=== PATIENT | female | born 1940 | race Caucasian/White ===

== ENCOUNTER 2017-02-17 11:03 | Emergency (ER) | payer OTHER, MEDICARE ==
[~2017-02-17 11:03] MED LIST: ALBUTEROL SULFA0.5 % IN; BACTRIM DS1 TAB PO; BENAZEPRIL HCL/1 TA3 PO; CARAFATE E1 GM/10 ML PO; CARAFATE EQUIVAL1 GM PO; COLACE100 MG PO; FERROUS SULFAT325 M1 PO; FIBER SELECT GUMMIES PO; HYCET1 ML PO; LOMOTIL2.5 MG PO; LOPRESSOR25 MG PO; PEPCID40 MG PO; PERCOCET1 TA1 PO; PREDNISONE20 MG PO; PRILOSEC20 MG PO; PROAIR HFA IN; SYNTHROID100 MCG PO; VITAMIN B-122000 MCG PO; [UNRECOGNIZED DRUG - OTHER] PO; [UNRECOGNIZED DRUG - OTHER] PO
--- NOTE | 2017-02-17 13:32 | ED CLINICAL REPORT ---
Clinical Report - Physicians/Mid Levels [facility] [address] [place] [address] 02/17/2017 11:03 Patient: REILLY PRESTON Time Seen: 11:05. Arrived- By ambulance. Historian- patient and EMS personnel. HISTORY OF PRESENT ILLNESS Chief Complaint: VOMITING. This started last night and is still present. No recent travel. She has had nausea, vomiting and abdominal pain. No black stools, bloody stools, flank pain, history of possible bad food exposure or known contact with a sick individual. She has had constipation (No colostomy output this morning.). Has not recently been camping or on antibiotics. The illness is described as moderate. (PT describes upper abdominal pain. She states that she has had bowel obstructions in the past, and this feels similar. Vomitus has been brownish-green. Pt had a distal large bowel resection and [id number] muscle graft in July of [address] [facility]. Pt has a caregiver.). Similar symptoms previously: Recent medical care: The patient was seen recently by a health care provider. REVIEW OF SYSTEMS No fever, muscle aches, difficulty with urination, dark urine or headache. No dizziness, sore throat, cough, chest pain or difficulty breathing. No excessive urination, skin rash, jaundice, back pain or fainting episodes. No blurred vision. All systems otherwise negative, except as recorded above. PAST HISTORY Home O2 at 2 L RTC. Problems: COPD - Chronic Obstructive Pulmonary Disease. GI Bleeding. Ureterolithiasis. Bowel Obstruction. Abcess left back near kidney. Leukemia. Rectal CA. Thyroid Disease. Additional Surgeries: Adenoidectomy. Appendectomy. Cholecystectomy. Hysterectomy. Right ankle surgery after fx. Tonsillectomy. Ulcer surgery. Medications: Albutreral inhaler (PRN). Benazepril-Hydrochlorothiazide Oral (Tablet 10-12.5 mg) 1 tablet, Day. L-thyroxine 125mcg one tab day. Oxygen 2l/nc. Allergies: No Known Drug Allergy. SOCIAL HISTORY Former smoker. ADDITIONAL NOTES The nursing notes have been reviewed. PHYSICAL EXAM Vital Signs: 02/17/2017 11:08 BP: 144/103. HR: 71. RR: 18. O2 saturation: 96%. Have been reviewed. Appearance: Alert. Oriented X3. No acute distress. (Pt appears mildly uncomfortable.). Eyes: Pupils equal, round and reactive to light. Eyes normal inspection. ENT: Nose normal. Neck: Normal inspection. CVS: Normal heart rate and rhythm. Heart sounds normal. Pulses normal. Respiratory: No respiratory distress. Breath sounds normal. Abdomen: Soft. Moderate tenderness in the upper abdomen. No guarding or rebound tenderness. (Pt has a L-sided colostomy in place with brownish stool residue only. Colostomy site is well-appearing.). Back: Normal inspection. No CVA tenderness. Skin: Skin warm and dry. Normal skin color. No rash. Normal skin turgor. Extremities: Extremities exhibit normal ROM. No lower extremity edema. Neuro: Oriented X 3. No motor deficit. No sensory deficit. LABS, X-RAYS, AND EKG Laboratory Tests: CBC w Diff: (CALEB: 02/17/2017 11:30) ( [facility] [place] 02/17/2017 11:50) Final results Test Result Flag Units (Reference) WHITE BLOOD COUNT 15.9 H K/uL (4.5-11.5) RED BLOOD COUNT 4.58 M/uL (4.00-5.20) HEMOGLOBIN 11.7 L gm/dL (12.0-16.0) HEMATOCRIT 36.8 % (36.0-46.0) MEAN CELL VOLUME 80 fL (80-100) MEAN CORPUSCULAR HGB 26 pg (26-34) MEAN CORPUSCULAR HGB CONC 32 g/dL (31-37) RED CELL DISTRIBUTION WIDTH 19.3 H % (11.6-14.8) PLATELET COUNT 495 H K/uL (150-400) NEUTROPHIL % 85.2 H % (50-75) LYMPH % 8.2 L % (25-40) MONO % 5.4 % (3-14) EOSINOPHIL % 1.1 % (0-4) BASOPHIL % 0.1 % (0-2) CMP: (CALEB: 02/17/2017 11:30) ( [facility] [place] 02/17/2017 12:05) Final results Test Result Flag Units (Reference) GLUCOSE 152 H mg/dL (70-110) BUN 25 H mg/dL (7-18) CREATININE 1.8 H mg/dL (0.6-1.3) Estimated GFR 29.15 mL/min Estimated GFR- 35.33 mL/min Note: Persistent reduction over 3 months in eGFR<60 mL/min/1.73 m2 defines CKD. Patients with eGFR values>=60 mL/min/1.73 m2 may also have CKD if evidence ofpersistent proteinuria. Additional information may be foundat www.kidney.org. SODIUM 141 mmol/L (136-145) POTASSIUM 4.1 mmol/L (3.5-5.1) CHLORIDE 103 mmol/L (98-107) CARBON DIOXIDE 30 mmol/L (21-32) CALCIUM 10.3 H mg/dL (8.5-10.1) TOTAL PROTEIN 7.9 g/dL (6.4-8.2) ALBUMIN 2.8 L g/dL (3.3-5.0) BILIRUBIN, TOTAL 0.5 mg/dL (0.0-1.0) ALKALINE PHOSPHATASE 117 H U/L (46-116) AST (SGOT) 45 H U/L (15-37) ALT (SGPT) 26 U/L (12-78) . Pulse Oximetry: 02/17/2017 11:08 O2 saturation: 96%. (FIO2 - room air). Interpretation: normal. PROGRESS AND PROCEDURES Course of Care: Pt was given IV fluids and Zofran, and worked up for her vomiting. Her labs showed a moderate leukocytosis, but were otherwise unremarkable. I ordered a CT scan to evaluate for an obstruction; however, as pt was being moved to the CT table, she had a very large output of stool into her ostomy bag. Pt reported feeling completely better following this, and after a period of observation in the ED, was still feeling back to normal. I did cancel the CT scan, and I felt the pt was stable for d/c home. Patient counseled in person regarding the patient's stable condition, test results, diagnosis and need for follow-up. Concerns were addressed. Old medical records reviewed. Disposition: Discharged. Condition: stable and improved. CLINICAL IMPRESSION Vomiting with nausea. Constipation (resolved). INSTRUCTIONS Drink plenty of fluids. Warnings: GENERAL WARNINGS: Return or contact your physician immediately if your condition worsens or changes unexpectedly, if not improving as expected, or if other problems arise. Your Current Medications: CONTINUE TAKING THE FOLLOWING MEDICATIONS: Albutreral inhaler* : PRN. Benazepril-Hydrochlorothiazide Oral : Tablet 10-12.5 mg, 1 tablet Day. L-thyroxine 125mcg one tab day*. Oxygen 2l/nc*. Follow-up: Follow up with your doctor as needed. Understanding of the discharge instructions verbalized by patient. (Electronically signed by Maxine Sylvester MD 02/21/2017 3:57)
--- NOTE | 2017-02-17 13:32 | ED NURSING NOTES ---
Clinical Report - Nurses [facility] [address] [place] [address] 02/17/2017 11:03 Patient: REILLY PRESTON TRIAGE Triage time 11:Feb 17 2017. Acuity: LEVEL 2. Chief Complaint: ABDOMINAL PAIN and VOMITING. Alert. No acute distress. --11:20 Neelam Coopre R.N. 11:08 02/17/17. BP: 144/103. HR: 71. RR: 18. O2 saturation: 96%. Pain level now 0/10. --11:20 Neelam Cooper R.N. Weight: 73 kg stated. Height/Length: 65 inches Per Patient. BMI: 26.8. --11:08 Neelam Cooper R.N. Medications Albutreral inhaler (PRN). Benazepril-Hydrochlorothiazide Oral (Tablet 10-12.5 mg) 1 tablet, Day. L-thyroxine 125mcg one tab day. Oxygen 2l/nc. --11:14 Neelam Cooper R.N. Medication/allergy information source: the patient. --11:20 Neelam Cooper R.N. Allergies No Known Drug Allergy. --11:14 Neelam Cooper R.N. History Arrived by EMS, and ([place]). Historian: patient. Primary physician (Dr. Treadwell). ( Hx of Rectal Cancer - Ostomy placed 13 of August and Muscle Graft from the Right Thigh that was used for Rectum. All this was done at . Surgeons are there. Caregiver called 911 because pt has decreased output from Ostomy and urine output. Pt is vomiting. Decreased intake also. Pt currently has two abdominal hernia's also, old and were fixed by Dr. Chew.). This started yesterday. She has had nausea, vomiting and abdominal pain. Treatment PROFESSIONAL SERVICES CONSULTANT: None. PAST MEDICAL HX: Immunizations: has received tetanus within 5 years; seasonal influenza. SOCIAL HX: Current every day light tobacco smoker (cigarette)- less than 1/2 a pack per day. Occasional alcohol use; consumes liquor. No drug use. No recent travel. No infectious disease exposure. FALL RISK ASSESSMENT: Fall risk assessment completed. No fall risk identified. NUTRITIONAL RISK ASSESSMENT: The nutritional risk assessment revealed no deficiencies. FUNCTIONAL ASSESSMENT: Functional assessment: no impairments noted. LEARNING NEEDS ASSESSMENT: The learning needs assessment revealed no barriers. SKIN INTEGRITY ASSESSMENT: Skin integrity risk assessment completed. No skin integrity risk identified. --11:20 Neelam Cooper R.N. PROBLEMS: COPD - Chronic Obstructive Pulmonary Disease. GI Bleeding. Ureterolithiasis. Bowel Obstruction. Abcess left back near kidney. Leukemia. Rectal CA. Thyroid Disease. --11:17 Neelam Cooper R.N. ADDITIONAL SURGERIES: Adenoidectomy. Appendectomy. Cholecystectomy. Hysterectomy. Muscle Graft. Ostomy. Right ankle surgery after fx. Tonsillectomy. Ulcer surgery. --11:17 Neelam Cooper R.N. Interventions ID band on patient. To room. --11:20 Neelam Copoer R.N. PHYSICAL ASSESSMENT To room via stretcher. GENERAL / NEURO / PSYCH: Oriented X 4. Appears in no acute distress. RESPIRATORY: ( cough, not new pt states, "smokers cough"). GI / : The patient has had nausea and nausea. Abdominal distention. Abdominal tenderness. ( Ostomy on 07/2016). --11:22 Neelam Cooper R.N. NURSING PROGRESS NOTES Oxygen administered. Monitoring of patient in place. Patient gowned. Reassurance given. ( Provider was at bedside on pt's arrival.). --11:21 Neelam Cooper R.N. 11:34 02/17/2017 Site #1 started via IV in the right antecubital space with an 18g angiocath, with aseptic technique and good blood return; one attempt. Blood drawn: rainbow set. Labeled in the presence of the patient and sent to the lab. Saline lock flushed with 10 mL saline (lactate also, no touriquett). --11:34 Neelam Cooper R.N. ( Bedside Commode set up.). --11:34 Neelam Cooper R.N. 11:47 02/17/2017 Zofran (Ondansetron HCl) IVP 4 mg given over 2 minute(s) via site #1. Allergies verified and confirmed 5 rights. IV patency established. IV site checked: no pain, redness, or swelling. IV flushed thoroughly pre- and post-medication administration. IVP given by RN. --11:47 Neelam Cooper R.N. 11:49 02/17/2017 Started bag #1 1000 mL IV Fluids IV NS (Saline); at 1000 mL/hr over 1 hour(s) via site #1. Completed per protocol. --11:49 Neelam Cooper R.N. Call light placed in reach. Side rails up x 2. Bed placed in lowest position. Brakes of bed on. ( Blankets.). --11:50 Neelam Cooper R.N. The patient is resting quietly and has had no adverse reaction. --12:35 Neelam Cooper R.N. 12:35 02/17/17. BP: 123/53. HR: 65. --12:35 Neelam Cooper R.N. Patient transported to [place] by [employer]. (12:58 Feb 17 2017). --12:58 Neelam Cooper R.N. ( Pt had a very large amount of stool removed from her Ostomy.). --12:59 Neelam Cooper R.N. 12:20 02/17/2017 IV Fluids IV NS Discontinued: bag #1 infused. Total amount infused: 1000 mL. IV patency established. IV site checked: no pain, redness, or swelling. IV flushed thoroughly. --14:16 Neelam Cooper R.N. 14:16 02/17/17. BP: 123/53. HR: 71. RR: 20. O2 saturation: 100%. Pain level now 0/10. --14:18 Neelam Cooper R.N. ( Assisted pt with dressing herself, toilet. IV removed. on the way.). --14:18 Neelam Cooper R.N. 14:18 02/17/2017 Site #1 removed upon discharge. Bandage applied. --14:18 Neelam Cooper R.N. ( Family updated on pt's visit in the ER. Family agreeable for pt to go home. Pt will follow up with PCP.). --15:17 Neelam Cooper R.N. DISPOSITION / DISCHARGE Departure time: 14:45 Feb 17 2017. ( VS documented under progress for discharge vitals.). No learning barriers present. Discharge instructions provided and reviewed with the patient and spouse. Patient and spouse verbalized understanding. Written instructions provided in Slovenian. The patient was discharged by the physician. She was discharged home and accompanied by spouse. She left the Emergency Department ambulatory and via private vehicle. Spouse driving. --15:18 Neelam Cooper R.N. Locked/Released at 02/17/2017 15:19 by Neelam Cooper R.N.
--- NOTE | 2017-02-17 13:32 | ED NURSING NOTES ---
Clinical Report - Nurses [facility] [address] [place] [address] 02/17/2017 11:03 Patient: REILLY PRESTON TRIAGE Triage time 11:Feb 17 2017. Acuity: LEVEL 2. Chief Complaint: ABDOMINAL PAIN and VOMITING. Alert. No acute distress. --11:20 Neelam Cooper R.N. 11:08 02/17/17. BP: 144/103. HR: 71. RR: 18. O2 saturation: 96%. Pain level now 0/10. --11:20 Neelam Cooper R.N. Weight: 73 kg stated. Height/Length: 65 inches Per Patient. BMI: 26.8. --11:08 Neelam Cooper R.N. Medications Albutreral inhaler (PRN). Benazepril-Hydrochlorothiazide Oral (Tablet 10-12.5 mg) 1 tablet, Day. L-thyroxine 125mcg one tab day. Oxygen 2l/nc. --11:14 Neelam Cooper R.N. Medication/allergy information source: the patient. --11:20 Neelam Cooper R.N. Allergies No Known Drug Allergy. --11:14 Neelam Cooper R.N. History Arrived by EMS, and ([place]). Historian: patient. Primary physician (Dr. Treadwell). ( Hx of Rectal Cancer - Ostomy placed 13 of August and Muscle Graft from the Right Thigh that was used for Rectum. All this was done at . Surgeons are there. Caregiver called 911 because pt has decreased output from Ostomy and urine output. Pt is vomiting. Decreased intake also. Pt currently has two abdominal hernia's also, old and were fixed by Dr. Chew.). This started yesterday. She has had nausea, vomiting and abdominal pain. Treatment ASSISTANT DISTRICT ATTORNEY: None. PAST MEDICAL HX: Immunizations: has received tetanus within 5 years; seasonal influenza. SOCIAL HX: Current every day light tobacco smoker (cigarette)- less than 1/2 a pack per day. Occasional alcohol use; consumes liquor. No drug use. No recent travel. No infectious disease exposure. FALL RISK ASSESSMENT: Fall risk assessment completed. No fall risk identified. NUTRITIONAL RISK ASSESSMENT: The nutritional risk assessment revealed no deficiencies. FUNCTIONAL ASSESSMENT: Functional assessment: no impairments noted. LEARNING NEEDS ASSESSMENT: The learning needs assessment revealed no barriers. SKIN INTEGRITY ASSESSMENT: Skin integrity risk assessment completed. No skin integrity risk identified. --11:20 Neelam Cooper R.N. PROBLEMS: COPD - Chronic Obstructive Pulmonary Disease. GI Bleeding. Ureterolithiasis. Bowel Obstruction. Abcess left back near kidney. Leukemia. Rectal CA. Thyroid Disease. --11:17 Neelam Cooper R.N. ADDITIONAL SURGERIES: Adenoidectomy. Appendectomy. Cholecystectomy. Hysterectomy. Muscle Graft. Ostomy. Right ankle surgery after fx. Tonsillectomy. Ulcer surgery. --11:17 Neelam Cooper R.N. Interventions ID band on patient. To room. --11:20 Neelam Cooper R.N. PHYSICAL ASSESSMENT To room via stretcher. GENERAL / NEURO / PSYCH: Oriented X 4. Appears in no acute distress. RESPIRATORY: ( cough, not new pt states, "smokers cough"). GI / : The patient has had nausea and nausea. Abdominal distention. Abdominal tenderness. ( Ostomy on 07/2016). --11:22 Neelam Cooper R.N. NURSING PROGRESS NOTES Oxygen administered. Monitoring of patient in place. Patient gowned. Reassurance given. ( Provider was at bedside on pt's arrival.). --11:21 Neelam Cooper R.N. 11:34 02/17/2017 Site #1 started via IV in the right antecubital space with an 18g angiocath, with aseptic technique and good blood return; one attempt. Blood drawn: rainbow set. Labeled in the presence of the patient and sent to the lab. Saline lock flushed with 10 mL saline (lactate also, no touriquett). --11:34 Neelam Cooper R.N. ( Bedside Commode set up.). --11:34 Neelam Cooper R.N. 11:47 02/17/2017 Zofran (Ondansetron HCl) IVP 4 mg given over 2 minute(s) via site #1. Allergies verified and confirmed 5 rights. IV patency established. IV site checked: no pain, redness, or swelling. IV flushed thoroughly pre- and post-medication administration. IVP given by RN. --11:47 Neelam Cooper R.N. 11:49 02/17/2017 Started bag #1 1000 mL IV Fluids IV NS (Saline); at 1000 mL/hr over 1 hour(s) via site #1. Completed per protocol. --11:49 Neelam Cooper R.N. Call light placed in reach. Side rails up x 2. Bed placed in lowest position. Brakes of bed on. ( Blankets.). --11:50 Neelam oCoper R.N. The patient is resting quietly and has had no adverse reaction. --12:35 Neelam Cooper R.N. 12:35 02/17/17. BP: 123/53. HR: 65. --12:35 Neelam Cooper R.N. Patient transported to [place] by [employer]. (12:58 Feb 17 2017). --12:58 Neelam Cooper R.N. ( Pt had a very large amount of stool removed from her Ostomy.). --12:59 Neelam Cooper R.N. 12:20 02/17/2017 IV Fluids IV NS Discontinued: bag #1 infused. Total amount infused: 1000 mL. IV patency established. IV site checked: no pain, redness, or swelling. IV flushed thoroughly. --14:16 Neelam Cooper R.N. 14:16 02/17/17. BP: 123/53. HR: 71. RR: 20. O2 saturation: 100%. Pain level now 0/10. --14:18 Neelam Cooper R.N. ( Assisted pt with dressing herself, toilet. IV removed. on the way.). --14:18 Neelam Cooper R.N. 14:18 02/17/2017 Site #1 removed upon discharge. Bandage applied. --14:18 Neelam Cooper R.N. ( Family updated on pt's visit in the ER. Family agreeable for pt to go home. Pt will follow up with PCP.). --15:17 Neelam Cooper R.N. DISPOSITION / DISCHARGE Departure time: 14:45 Feb 17 2017. ( VS documented under progress for discharge vitals.). No learning barriers present. Discharge instructions provided and reviewed with the patient and spouse. Patient and spouse verbalized understanding. Written instructions provided in Upper Sorbian. The patient was discharged by the physician. She was discharged home and accompanied by spouse. She left the Emergency Department ambulatory and via private vehicle. Spouse driving. --15:18 Neelam Cooper R.N. Locked/Released at 02/17/2017 15:19 by Neelam Cooper R.N.
--- NOTE | 2017-02-17 13:32 | ED CLINICAL REPORT ---
Clinical Report - Physicians/Mid Levels [facility] [address] [place] [address] 02/17/2017 11:03 Patient: REILLY PRESTON Time Seen: 11:05. Arrived- By ambulance. Historian- patient and EMS personnel. HISTORY OF PRESENT ILLNESS Chief Complaint: VOMITING. This started last night and is still present. No recent travel. She has had nausea, vomiting and abdominal pain. No black stools, bloody stools, flank pain, history of possible bad food exposure or known contact with a sick individual. She has had constipation (No colostomy output this morning.). Has not recently been camping or on antibiotics. The illness is described as moderate. (PT describes upper abdominal pain. She states that she has had bowel obstructions in the past, and this feels similar. Vomitus has been brownish-green. Pt had a distal large bowel resection and [id number] muscle graft in July of 2016 at [facility]. Pt has a caregiver.). Similar symptoms previously: Recent medical care: The patient was seen recently by a health care provider. REVIEW OF SYSTEMS No fever, muscle aches, difficulty with urination, dark urine or headache. No dizziness, sore throat, cough, chest pain or difficulty breathing. No excessive urination, skin rash, jaundice, back pain or fainting episodes. No blurred vision. All systems otherwise negative, except as recorded above. PAST HISTORY Home O2 at 2 L RTC. Problems: COPD - Chronic Obstructive Pulmonary Disease. GI Bleeding. Ureterolithiasis. Bowel Obstruction. Abcess left back near kidney. Leukemia. Rectal CA. Thyroid Disease. Additional Surgeries: Adenoidectomy. Appendectomy. Cholecystectomy. Hysterectomy. Right ankle surgery after fx. Tonsillectomy. Ulcer surgery. Medications: Albutreral inhaler (PRN). Benazepril-Hydrochlorothiazide Oral (Tablet 10-12.5 mg) 1 tablet, Day. L-thyroxine 125mcg one tab day. Oxygen 2l/nc. Allergies: No Known Drug Allergy. SOCIAL HISTORY Former smoker. ADDITIONAL NOTES The nursing notes have been reviewed. PHYSICAL EXAM Vital Signs: 02/17/2017 11:08 BP: 144/103. HR: 71. RR: 18. O2 saturation: 96%. Have been reviewed. Appearance: Alert. Oriented X3. No acute distress. (Pt appears mildly uncomfortable.). Eyes: Pupils equal, round and reactive to light. Eyes normal inspection. ENT: Nose normal. Neck: Normal inspection. CVS: Normal heart rate and rhythm. Heart sounds normal. Pulses normal. Respiratory: No respiratory distress. Breath sounds normal. Abdomen: Soft. Moderate tenderness in the upper abdomen. No guarding or rebound tenderness. (Pt has a L-sided colostomy in place with brownish stool residue only. Colostomy site is well-appearing.). Back: Normal inspection. No CVA tenderness. Skin: Skin warm and dry. Normal skin color. No rash. Normal skin turgor. Extremities: Extremities exhibit normal ROM. No lower extremity edema. Neuro: Oriented X 3. No motor deficit. No sensory deficit. LABS, X-RAYS, AND EKG Laboratory Tests: CBC w Diff: (CALEB: 02/17/2017 11:30) ( [facility] [place] 02/17/[place] 11:50) Final results Test Result Flag Units (Reference) WHITE BLOOD COUNT 15.9 H K/uL (4.5-11.5) RED BLOOD COUNT 4.58 M/uL (4.00-5.20) HEMOGLOBIN 11.7 L gm/dL (12.0-16.0) HEMATOCRIT 36.8 % (36.0-46.0) MEAN CELL VOLUME 80 fL (80-100) MEAN CORPUSCULAR HGB 26 pg (26-34) MEAN CORPUSCULAR HGB CONC 32 g/dL (31-37) RED CELL DISTRIBUTION WIDTH 19.3 H % (11.6-14.8) PLATELET COUNT 495 H K/uL (150-400) NEUTROPHIL % 85.2 H % (50-75) LYMPH % 8.2 L % (25-40) MONO % 5.4 % (3-14) EOSINOPHIL % 1.1 % (0-4) BASOPHIL % 0.1 % (0-2) CMP: (CALEB: 02/17/2017 11:30) ( [facility] [place] 02/17/[place] 12:05) Final results Test Result Flag Units (Reference) GLUCOSE 152 H mg/dL (70-110) BUN 25 H mg/dL (7-18) CREATININE 1.8 H mg/dL (0.6-1.3) Estimated GFR 29.15 mL/min Estimated GFR- 35.33 mL/min Note: Persistent reduction over 3 months in eGFR<60 mL/min/1.73 m2 defines CKD. Patients with eGFR values>=60 mL/min/1.73 m2 may also have CKD if evidence ofpersistent proteinuria. Additional information may be foundat www.kidney.org. SODIUM 141 mmol/L (136-145) POTASSIUM 4.1 mmol/L (3.5-5.1) CHLORIDE 103 mmol/L (98-107) CARBON DIOXIDE 30 mmol/L (21-32) CALCIUM 10.3 H mg/dL (8.5-10.1) TOTAL PROTEIN 7.9 g/dL (6.4-8.2) ALBUMIN 2.8 L g/dL (3.3-5.0) BILIRUBIN, TOTAL 0.5 mg/dL (0.0-1.0) ALKALINE PHOSPHATASE 117 H U/L (46-116) AST (SGOT) 45 H U/L (15-37) ALT (SGPT) 26 U/L (12-78) . Pulse Oximetry: 02/17/2017 11:08 O2 saturation: 96%. (FIO2 - room air). Interpretation: normal. PROGRESS AND PROCEDURES Course of Care: Pt was given IV fluids and Zofran, and worked up for her vomiting. Her labs showed a moderate leukocytosis, but were otherwise unremarkable. I ordered a CT scan to evaluate for an obstruction; however, as pt was being moved to the CT table, she had a very large output of stool into her ostomy bag. Pt reported feeling completely better following this, and after a period of observation in the ED, was still feeling back to normal. I did cancel the CT scan, and I felt the pt was stable for d/c home. Patient counseled in person regarding the patient's stable condition, test results, diagnosis and need for follow-up. Concerns were addressed. Old medical records reviewed. Disposition: Discharged. Condition: stable and improved. CLINICAL IMPRESSION Vomiting with nausea. Constipation (resolved). INSTRUCTIONS Drink plenty of fluids. Warnings: GENERAL WARNINGS: Return or contact your physician immediately if your condition worsens or changes unexpectedly, if not improving as expected, or if other problems arise. Your Current Medications: CONTINUE TAKING THE FOLLOWING MEDICATIONS: Albutreral inhaler* : PRN. Benazepril-Hydrochlorothiazide Oral : Tablet 10-12.5 mg, 1 tablet Day. L-thyroxine 125mcg one tab day*. Oxygen 2l/nc*. Follow-up: Follow up with your doctor as needed. Understanding of the discharge instructions verbalized by patient. (Electronically signed by Maxine Sylvester MD 02/21/2017 3:57)
--- NOTE | 2017-02-17 13:32 | ED ORDER SUMMARY ---
..... Patient: REILLY PRESTON OrderSheet [facility] VisitID: [id number] [address] [place] [address] 76y, F Registration Date/Time: 02/17/2017 ORDER SHEET Weight: 73.0 kg (stated) Allergies: No Known Drug Allergy GENERAL ORDERS: CT Abd/Pel w Cont (No) (N/A) Urgent (11:20 02/17/2017 Prem CROCKER) (Ack 11:27 LNations ER Tech1) (Cancelled: Other12:12 Prem CROCKER) CBC w Diff Urgent (11:02/17/2017 Prme CROCKER) (Ack 11:27 LNations ER Tech1) (11:47 SBalde R.N.) CMP Urgent (11:21 02/17/2017 Prem CROCKER) (Ack 11:27 LNations ER Tech1) (11:47 SBalde R.N.) CT Abd/Pel wo Cont Urgent (12:12 02/17/2017 Prem CROCKER) (Ack 12:14 LNations ER Tech1) (Cancelled: Change in patient [id number]:31 Prem CROCKER) MEDICATION ORDERS: IV FLUIDS: IV NS : initial bolus 1000 mL (1000 mL/hr), then none - (NOW) (11:20 02/17/2017 Prem CROCKER) (11:49 SBalde R.N.) Zofran IV 8 mg (NOW) (11:02/17/2017 Prem CROCKER) (11:47 CAMILAalde R.N.) ORDER SHEET NOTES: [Electronically signed by Neelam Cooper R.N. (15:19 02/17/2017)] [Electronically signed by Maxine Sylvester MD (03:57 02/21/2017)] [Electronically locked/signed by Neelam Cooper R.N. (15:19 02/17/2017)]
--- NOTE | 2017-02-17 13:32 | ED ORDER SUMMARY ---
..... Patient: REILLY PRESTON OrderSheet [facility] VisitID: [id number] [address] [place] [address] 76y, F Registration Date/Time: 02/17/2017 ORDER SHEET Weight: 73.0 kg (stated) Allergies: No Known Drug Allergy GENERAL ORDERS: CT Abd/Pel w Cont (No) (N/A) Urgent (11:20 02/17/2017 Prem CROCKER) (Ack 11:27 LNations ER Tech1) (Cancelled: Other12:12 Prem CROCKER) CBC w Diff Urgent (11:02/17/2017 Prem CROCKER) (Ack 11:27 LNations ER Tech1) (11:47 SBalde R.N.) CMP Urgent (11:21 02/17/2017 Prem CROCKER) (Ack 11:27 LNations ER Tech1) (11:47 SBalde R.N.) CT Abd/Pel wo Cont Urgent (12:12 02/17/2017 Prem CROCKER) (Ack 12:14 LNations ER Tech1) (Cancelled: Change in patient [id number]:31 Prem CROCKER) MEDICATION ORDERS: IV FLUIDS: IV NS : initial bolus 1000 mL (1000 mL/hr), then none - (NOW) (11:20 02/17/2017 Prem CROCKER) (11:49 SBalde R.N.) Zofran IV 8 mg (NOW) (11:02/17/2017 Prem CROCKER) (11:47 CAMILAalde R.N.) ORDER SHEET NOTES: [Electronically signed by Neelam Cooper R.N. (15:19 02/17/2017)] [Electronically signed by Maxine Sylvester MD (03:57 02/21/2017)] [Electronically locked/signed by Neelam Cooper R.N. (15:19 02/17/2017)]
--- NOTE | 2017-02-21 03:57 | ED MAR SUMMARY ---
..... Medication Administration Record [facility] [address] [place] [address] Patient: REILLY PRESTON Visit ID: [id number] 76y, F Weight: 73.0 kg Height/Length: 65 in BMI: 26.8 ALLERGIES: No Known Drug Allergy Given 11:47 02/17/2017 Neelam Cooper R.N. Medication Administered: ZOFRAN [IVP] (ONDANSETRON HCL), Dose: 4 mg IVP over 2 minute(s), Site: #1 right AC. Medication Ordered: Zofran IV 8 mg (NOW). Start 11:49 02/17/2017 Neelam Cooper R.N., Stop 12:20 02/17/2017 Neelam Cooper R.N. Medication Administered: IV NS (SALINE), Dose: IV Fluids over 1 hour(s), Rate: 1000 mL/hr, Dispensed: 1000 mL bag, Site: #1 right AC. Medication Ordered: IV NS : initial bolus 1000 mL (1000 mL/hr), then none - (NOW).
--- NOTE | 2017-02-21 03:57 | ED MAR SUMMARY ---
..... Medication Administration Record [facility] [address] [place] [address] Patient: REILLY PRESTON Visit ID: [id number] 76y, F Weight: 73.0 kg Height/Length: 65 in BMI: 26.8 ALLERGIES: No Known Drug Allergy Given 11:47 02/17/2017 Neelam Cooper R.N. Medication Administered: ZOFRAN [IVP] (ONDANSETRON HCL), Dose: 4 mg IVP over 2 minute(s), Site: #1 right AC. Medication Ordered: Zofran IV 8 mg (NOW). Start 11:49 02/17/2017 Neelam Cooper R.N., Stop 12:20 02/17/2017 Neelam Cooper R.N. Medication Administered: IV NS (SALINE), Dose: IV Fluids over 1 hour(s), Rate: 1000 mL/hr, Dispensed: 1000 mL bag, Site: #1 right AC. Medication Ordered: IV NS : initial bolus 1000 mL (1000 mL/hr), then none - (NOW).
--- NOTE | 2017-02-21 03:57 | ED DISCHARGE INSTRUCTIONS ---
Patient: REILLY PRESTON General Instructions [facility] VisitID: [id number] [address] [place] [address] 76y, F Registration Date/Time: 02/17/2017 Vomiting with nausea. Constipation (resolved). INSTRUCTIONS Drink plenty of fluids. Warnings: GENERAL WARNINGS: Return or contact your physician immediately if your condition worsens or changes unexpectedly, if not improving as expected, or if other problems arise. Your Current Medications: CONTINUE TAKING THE FOLLOWING MEDICATIONS: Albutreral inhaler* : PRN. Benazepril-Hydrochlorothiazide Oral : Tablet 10-12.5 mg, 1 tablet Day. L-thyroxine 125mcg one tab day*. Oxygen 2l/nc*. Follow-up: Follow up with your doctor as needed. Understanding of the discharge instructions verbalized by patient. ADDITIONAL INFORMATION Vomiting [6Yr-Adult] Vomiting is a common symptom that may be due to different causes. These include gastroenteritis ("stomach flu"), food poisoning and gastritis. There are other more serious causes of vomiting which may be hard to diagnose early in the illness. Therefore, it is important to watch for the warning signs listed below. The main danger from repeated vomiting is dehydration. This is due to excess loss of water and minerals from the body. When this occurs, body fluids must be replaced. Home Care: If symptoms are severe, rest at home for the next 24 hours. You may use acetaminophen (Tylenol) or ibuprofen (Motrin, Advil) to control fever, unless another medicine was prescribed. [NOTE : If you have chronic liver or kidney disease or ever had a stomach ulcer or GI bleeding, talk with your doctor before using these medicines.] (Aspirin should never be used in anyone under 18 years of age who is ill with a fever. It may cause severe liver damage.) Avoid tobacco and alcohol use, which may worsen your symptoms. If medicines for vomiting were prescribed, take as directed. Once vomiting stops, then follow these guidelines: During The First 12-24 Hours follow the diet below: FRUIT JUICES: Apple, grape juice, clear fruit drinks, and electrolyte replacement drinks. BEVERAGES: Soft drinks without caffeine; mineral water (plain or flavored), decaffeinated tea and coffee. SOUPS: Clear broth, consomm and bouillon DESSERTS: Plain gelatin, popsicles and fruit juice bars. As you feel better, you may add 6-8 ounces of yogurt per day. During The Next 24 Hours you may add the following to the above: Hot cereal, plain toast, bread, rolls, crackers Plain noodles, rice, mashed potatoes, chicken noodle or rice soup Unsweetened canned fruit (avoid pineapple), bananas Limit caffeine and chocolate. No spices or seasonings except salt. During The Next 24 Hours Gradually resume a normal diet, as you feel better and your symptoms lessen. Follow Up with your doctor as advised if you are not improving over the next 2-3 days. Get Prompt Medical Attention if any of the following occur: Constant right-sided lower abdominal pain or increasing general abdominal pain Continued vomiting (unable to keep liquids down) for 24 hours Frequent diarrhea (more than 5 times a day); blood (red or black color) or mucus in diarrhea Reduced urine output or extreme thirst Weakness, dizziness or fainting Unusually drowsy or confused Fever of 100.4F (38C) oral or higher, not better with fever medication Yellow color of the eyes or skin Constipation (Adult) Constipation is bowel movements that are less frequent than usual. Stools often become very hard and difficult to pass. This may lead to abdominal pain and bloating. It may also cause painful bowel movements. Constipation may be due to a diet thats low in fiber. Some medications, especially pain medications, can also cause it. Constipation may be treated with enemas, suppositories, laxatives or stool softeners. Your doctor will advise you which will work best for you. Follow the advice below to help avoid this problem in the future. Home Care Medication: Take any medicines as directed. Some laxatives are safe only for occasional use. Others can be taken on a regular basis. Talk to your doctor or pharmacist if you have questions. General Care: Prescription pain medications can cause constipation. If you are prescribed pain medications, ask the doctor whether you should also take a stool softener. A diet high in fiber with plenty of fluids helps to maintain regular, soft bowel movements. The following foods are good sources of dietary fiber: Cereals and breads: Whole grain cereal with bran, oatmeal, rolled oats, whole grain breads Fruits: All fruits (fresh and dried), raisins, prunes, apricots, berries, figs Vegetables: Any fresh vegetables, especially peas, broccoli, brussels sprouts, winter squash, green beans, cauliflower, miranda beans, carrots Other: Popcorn, brown rice Drink plenty of water when you increase the amount of fiber you eat. Follow Up with your doctor or return to this facility if symptoms do not improve in the next few days. You may require further tests or a referral to a specialist. Get Prompt Medical Attention if any of the following occur: Fever over 100.4F (38C) Failure to resume normal bowel movements Increasing abdominal or back pain Nausea or vomiting Abdominal swelling Blood in the stool Weakness, dizziness or fainting Unexpected vaginal bleeding You have been given the following additional information: Vomiting (6Y-Adult) Constipation (Adult) (Electronically signed by Maxine Sylvester MD 02/21/2017 3:57)
--- NOTE | 2017-02-21 03:58 | ED MED RECONCILIATION SUMMARY ---
Patient: REILLY PRESTON Medication Reconciliation Report [facility] VisitID: [id number] [address] [place] [address] 76y, F Registration Date/Time: 02/17/2017 Weight: 73.0 kg Height/Length: 65 in. BMI: 26.8 ALLERGIES: No Known Drug Allergy The patient's Home Medications are listed below: CONTINUE TAKING THE FOLLOWING MEDICATIONS: Albutreral inhaler, PRN Benazepril-Hydrochlorothiazide Oral (10-12.5 mg) 1 tablet, Day L-thyroxine 125mcg one tab day Oxygen 2l/nc The source(s) of the original Home Medication information: patient The following Medications were given to the patient in the Emergency Department: Zofran [IVP] IVP 4 mg, administered: 02/17/2017 11:47:00 AM IV NS IV Fluids bolus 0, then 1000 mL/hr, administered: 02/17/2017 11:49:00 AM The following Medications were prescribed to the patient: None.
--- NOTE | 2017-02-21 03:58 | ED MED RECONCILIATION SUMMARY ---
Patient: REILLY PRESTON Medication Reconciliation Report [facility] VisitID: [id number] [address] [place] [address] 76y, F Registration Date/Time: 02/17/2017 Weight: 73.0 kg Height/Length: 65 in. BMI: 26.8 ALLERGIES: No Known Drug Allergy The patient's Home Medications are listed below: CONTINUE TAKING THE FOLLOWING MEDICATIONS: Albutreral inhaler, PRN Benazepril-Hydrochlorothiazide Oral (10-12.5 mg) 1 tablet, Day L-thyroxine 125mcg one tab day Oxygen 2l/nc The source(s) of the original Home Medication information: patient The following Medications were given to the patient in the Emergency Department: Zofran [IVP] IVP 4 mg, administered: 02/17/2017 11:47:00 AM IV NS IV Fluids bolus 0, then 1000 mL/hr, administered: 02/17/2017 11:49:00 AM The following Medications were prescribed to the patient: None.
[2017-04-14] MEDS ORDERED: IPRATROPIUM BROMIDE/ IN (16:14)
[2017-04-14] MEDS ORDERED: PROAIR HFA IN (16:15)
[2017-04-14] MEDS ORDERED: ALBUTEROL HFA60 DOSE IN (16:17)
[2017-04-14] MEDS ORDERED: PREDNISONE20 MG PO (16:17)
[2017-04-21] MEDS ORDERED: PROAIR HFA IN (10:55)
[2017-04-21] MEDS ORDERED: PREDNISONE20 MG PO (10:55)
[2017-04-22] MEDS ORDERED: HYCET1 ML PO (09:29)
== END 2017-02-17 14:45 | disposition home or self-care (01) ==
LOC: ED SRH 11:03
DX: K59.00 Constipation, unspecified (principal); R11.2 Nausea with vomiting, unspecified; Z93.3 Colostomy status; Z85.048 Personal history of other malignant neoplasm of rectum, rectosigmoid junction, and anus; J44.1 Chronic obstructive pulmonary disease with (acute) exacerbation; Z87.891 Personal history of nicotine dependence; Z79.84 Long term (current) use of oral hypoglycemic drugs; Z79.899 Other long term (current) drug therapy
CPT/HCPCS: 90100; 95059

== ENCOUNTER 2017-03-30 21:15 | Inpatient (IN) | payer OTHER, MEDICARE ==
[~2017-03-30] VITALS: Ht 165.1 cm; Wt 76.9 kg
--- NOTE | 2017-03-30 22:56 | ED ORDER SUMMARY ---
..... Patient: REILLY PRESTON OrderSheet [facility] VisitID: [id number] [place] [address] 76y, F Registration Date/Time: 03/30/2017 ORDER SHEET Weight: 75.7 kg (stated) Allergies: No Known Drug Allergy GENERAL ORDERS: Blood Culture (No) (N/A) Urgent (21:55 03/30/2017 CBradburn R.N. per protocol) (22:05 AMcQuoid ER Tech1) CBC w Diff Urgent (21:56 03/30/2017 CBradburn R.N. per protocol) (22:05 AMcQuoid ER Tech1) CMP Urgent (21:56 03/30/2017 CBradburn R.N. per protocol) (22:05 AMcQuoid ER Tech1) Blood Culture (No) (N/A) Urgent (22:55 03/30/2017 Clinton CROCKER) (Ack 23:00 AMcQuoid ER Tech1) (23:10 TBowen R.N.) Lactate, Serum Urgent (22:56 03/30/2017 Clinton CROCKER) (Ack 23:00 AMcQuoid ER Tech1) (23:10 TBowen R.N.) Chest 1V Urgent (00:36 03/31/2017 Clinton CROCKER) (Ack 0:44 AMcQuoid ER Tech1) (0:48 CBradburn R.N.) UA-Culture if indicated Urgent (00:37 03/31/2017 Clinton CROCKER) (Ack 0:44 AMcQuoid ER Tech1) MEDICATION ORDERS: IV FLUIDS: Vancomycin IV 1.5 gm/500 mL (NOW) (22:55 03/30/2017 Clinton CROCKER) (Ack 23:10 CBradburn R.N.) (23:31 CBradburn R.N.) Invanz IV 1 gm (NOW) (23:57 03/30/2017 Clinton CROCKER) (Ack 0:00 CBradburn R.N.) (0:33 CBradburn R.N.) ORDER SHEET NOTES: [Electronically signed by Silvina Bey R.N. (01:05 03/31/2017)] [Electronically signed by Abelino Amaya MD (02:32 03/31/2017)] [Electronically locked/signed by Silvina Bey R.N. (01:05 03/31/2017)]
--- NOTE | 2017-03-30 22:56 | ED NURSING NOTES ---
Clinical Report - Nurses [facility] [address] [place] [address] 03/30/2017 21:15 Patient: REILLY PRESTON TRIAGE Triage time 21:24. Acuity: LEVEL 3. Chief Complaint: TENDER AREA. --21:36 Silvina Bey R.N. 21:26 03/30/17. BP: 107/60 taken on the left arm, while lying. HR: 93. RR: 18. O2 saturation: 90% on room air. Temp: 98.9 F (oral). Pain level now: 0/10. Additional comments: pt placed on 2L NC which is what she is on at home. --21:36 Silvina Bey R.N. Weight: 75.7 kg stated. Height/Length: 65 inches Per Patient. BMI: 27.8. --21:27 Silvina Bey R.N. Medications Albutreral inhaler (PRN). Benazepril-Hydrochlorothiazide Oral (Tablet 10-12.5 mg) 1 tablet, Day. L-thyroxine 125mcg one tab day. Oxygen 2l/nc. --21:32 Silvina Bey R.N. Allergies No Known Drug Allergy. --21:32 Silvina Bey R.N. History Arrived by private vehicle. Historian: patient and family. Accompanied by family. Primary physician (bertha). Location - right thigh. This started today. ( had surgery on inner thigh in Jul. allowing wound to close on own, packing daily. now redness and heat noticed to thigh with chills today). She has had fever. PAST MEDICAL HX: Immunizations: up-to-date. SOCIAL HX: Former smoker, end date 02/2017. Occasional alcohol use. No drug use. ABUSE ASSESSMENT: No report of abuse. SELF HARM ASSESSMENT: A self harm assessment was performed. The patient answered "no" to the question "Have you recently felt down, depressed, or hopeless?", "Have you noticed less interest or pleasure in doing things?", "Do you have thoughts of harming or killing yourself?", "Are you here because you tried to hurt yourself?", "Have you ever tried to hurt yourself before today?", "Have you recently had thoughts about harming or killing others?" and "Do you have any dangerous items in your possession?". FALL RISK ASSESSMENT: Fall risk assessment completed. Risk factors identified include patient age greater than 65 years. Fall interventions initiated. Side rails up x2; walker. --21:36 Silvina Bey R.N. PROBLEMS: Vomiting. Constipation. COPD - Chronic Obstructive Pulmonary Disease. GI Bleeding. Ureterolithiasis. Bowel Obstruction. Abcess left back near kidney. Leukemia. Rectal CA. Thyroid Disease. --21:33 Silvina Bey R.N. ADDITIONAL SURGERIES: Adenoidectomy. Appendectomy. Cholecystectomy. Hysterectomy. Muscle Graft. Ostomy. Right ankle surgery after fx. Tonsillectomy. Ulcer surgery. --21:33 Silvina Bey R.N. Interventions ID band on patient. --21:36 Silvina Bey R.N. PHYSICAL ASSESSMENT To room via wheelchair. GENERAL / NEURO / PSYCH: Alert. The patient does not appear to be in acute distress. Oriented X 4. HEENT: Pupils equal, round and reactive to light. Mucous membranes are pink. RESPIRATORY: Mild respiratory distress. Respirations not labored. Cough productive of moderate amounts of white sputum. CVS: Capillary refill less than 2 seconds. Capillary refill is greater than 2 seconds. Pulses within normal limits. GI / : Abdomen nontender. SKIN: Skin is warm and dry. Single incision with erythema and increased warmth on the right thigh and right leg. Increased warmth on the right thigh- associated with tenderness and erythema. Erythema present. --21:37 Silvina Bey R.N. NURSING PROGRESS NOTES Patient gowned. Two patient identifiers checked. Call light placed in reach. Side rails up x 2. Bed placed in lowest position. Brakes of bed on. --21:38 Silvina Bey R.N. Patient ready for evaluation- chart flagged. --21:38 Silvina Bey R.N. 21:40 03/30/2017 Site #1 started via IV in the left antecubital space with an 20g angiocath, with aseptic technique and good blood return; one attempt. Blood drawn: rainbow set. Labeled in the presence of the patient and sent to the lab. Saline lock flushed with 10 mL saline. --21:40 Bro Montano Critical value relayed to ED by lab. Critical value received by Tangela. WBC: 27. Critical value read back. ED physician notifed of critical value (julio c). --22:14 Silvina Bey R.N. 23:31 03/30/2017 Started 1.5 gm of Vancomycin IVPB in bag #1 250 mL; over 1.5 hour(s) via site #1 via IV pump. Allergies verified and confirmed 5 rights. IV patency established. IV site checked: no pain, redness, or swelling. IV flushed thoroughly pre- and post-medication administration. --23:31 Silvina Bey R.N. The patient is resting quietly. Overall patient status is the same- she states feels the same. RESPIRATORY: No respiratory distress. Breath sounds normal. --23:32 Silvina Bey R.N. 22:00 03/30/17. BP: 102/79. HR: 70 (regular). RR: 18. O2 saturation: 97% on nasal cannula at 2 liters/minute. Temp: deferred. Pain level now: 0/10. --23:32 Silvina Bey R.N. The patient is calm and resting quietly. Overall patient status is the same. RESPIRATORY: No respiratory distress. --23:33 Silvina Bey R.N. 23:32 03/30/17. BP: 96/42 taken on the right arm, while lying. HR: 77. RR: 18. O2 saturation: 96% on nasal cannula at 2 liters/minute. Temp: deferred. Pain level now: 0/10. --23:33 Silvina Bey R.N. 23:44 Patient given H&P form to complete. --23:44 McQuoid, Debra, ER Tech1 00:17 03/31/17. BP: 116/53 taken on the right arm, while lying. HR: 77 (regular and normal rate). RR: 18. O2 saturation: 97% on nasal cannula at 2 liters/minute. Temp: 98.2 F (oral). Pain level now: 0/10. --00:18 Silvina Bey R.N. The patient reports no complaints. SKIN: Skin is warm and dry. --00:18 Silvina Bey R.N. <<STRICKEN ENTRY-- 00:30 03/31/2017 Vancomycin IVPB Continued: upon admission at the rate of 160 mL/hr. 78 mL remaining bag #1. IV patency established. IV site checked: no pain, redness, or swelling. IV flushed thoroughly. --00:30 Silvina Bey R.N. --END STRIKE>> Correction. --01:03 Silvina Bey R.N. 00:30 03/31/2017 Vancomycin IVPB Continued: upon admission at the rate of 160 mL/hr. 78 mL remaining bag #1. IV patency established. IV site checked: no pain, redness, or swelling. IV flushed thoroughly. (completed at 0100). --01:03 Silvina Bey R.N. 00:33 03/31/2017 Invanz IVP 1 gm given over 30 minute(s) via site #1. IV patency established. IV site checked: no pain, redness, or swelling. IV flushed thoroughly pre- and post-medication administration (sent to floor with patient). --00:33 Silvina Bey R.N. DISPOSITION / DISCHARGE Admitted to Acute Care. Transported via stretcher by [employer] with IV and O2. Report was given to a nurse via a phone call. Report included patient's care, treatment, medications, reviewed medication reconcilliation, and condition (including any recent changes or anticipated changes). All questions were answered. Report was acknowledged and care was transferred. (Yessy RO). Patient's personal items; items were placed in belongings bag and transported with the patient. --00:45 Silvina Bey R.N. 00:58 03/31/2017 Site #[address] upon admission; patent, no pain and no signs of infection or infiltration. Good blood return present. --00:58 Silvina Bey R.N. 00:57 03/31/17. BP: 113/58 taken on the left arm, while lying. HR: 76 (regular and normal rate). RR: 18 (regular and unlabored). O2 saturation: 94% on nasal cannula at 2 liters/minute. Temp: 98.4 F (oral). Pain level now: . --00:58 Silvina Bey R.N. Departure time: 01:04. --01:04 Silvina Bey R.N. Locked/Released at 03/31/2017 1:05 by Silvina Bey R.N.
--- NOTE | 2017-03-30 22:56 | ED ORDER SUMMARY ---
..... Patient: REILLY PRESTON OrderSheet [facility] VisitID: [id number] [place] [address] 76y, F Registration Date/Time: 03/30/2017 ORDER SHEET Weight: 75.7 kg (stated) Allergies: No Known Drug Allergy GENERAL ORDERS: Blood Culture (No) (N/A) Urgent (21:55 03/30/2017 CBradburn R.N. per protocol) (22:05 AMcQuoid ER Tech1) CBC w Diff Urgent (21:56 03/30/2017 CBradburn R.N. per protocol) (22:05 AMcQuoid ER Tech1) CMP Urgent (21:56 03/30/2017 CBradburn R.N. per protocol) (22:05 AMcQuoid ER Tech1) Blood Culture (No) (N/A) Urgent (22:55 03/30/2017 Clinton CROCKER) (Ack 23:00 AMcQuoid ER Tech1) (23:10 TBowen R.N.) Lactate, Serum Urgent (22:56 03/30/2017 Clinton CROCKER) (Ack 23:00 AMcQuoid ER Tech1) (23:10 TBowen R.N.) Chest 1V Urgent (00:36 03/31/2017 Clinton CROCKER) (Ack 0:44 AMcQuoid ER Tech1) (0:48 CBradburn R.N.) UA-Culture if indicated Urgent (00:37 03/31/2017 Clinton CROCKER) (Ack 0:44 AMcQuoid ER Tech1) MEDICATION ORDERS: IV FLUIDS: Vancomycin IV 1.5 gm/500 mL (NOW) (22:55 03/30/2017 Clinton CROCKER) (Ack 23:10 CBradburn R.N.) (23:31 CBradburn R.N.) Invanz IV 1 gm (NOW) (23:57 03/30/2017 Clinton CROCKER) (Ack 0:00 CBradburn R.N.) (0:33 CBradburn R.N.) ORDER SHEET NOTES: [Electronically signed by Silvina Bey R.N. (01:05 03/31/2017)] [Electronically signed by Abelino Amaya MD (02:32 03/31/2017)] [Electronically locked/signed by Silvina Bey R.N. (01:05 03/31/2017)]
--- NOTE | 2017-03-30 22:56 | ED CLINICAL REPORT ---
Clinical Report - Physicians/Mid Levels [facility] [address] [place] [address] 03/30/2017 21:15 Patient: REILLY PRESTON Time Seen: 21:35. Arrived- By private vehicle. Historian- patient. HISTORY OF PRESENT ILLNESS Chief Complaint: LOWER EXTREMITY PAIN. This started several days ago and is still present and worsening. It was gradual in onset and has been constant. Severity is described as being .it has become recently worse. The quality is noted to be "pain". Symptoms located in the area of the right thigh. The patient has had severe redness. ( the patient underwent surgery at [facility] last fall. A flap was taken from her right thigh for repair on her buttock. The thigh woundhas been slow to heal and there is an open areawhich she and her family have been changing the packing onand dressing each day. Over the past several days she's had increased redness and warmth and swellingaround the wound.). Patient denies a recent injury. REVIEW OF SYSTEMS The patient has had fever, chills and fatigue and experienced sweats. No calf pain, chest pain, cough, difficulty breathing or pedal edema. No palpitations, abdominal pain, constipation, diarrhea or nausea. No vomiting or urinary problems. All systems otherwise negative, except as recorded above. PAST HISTORY ( PCP - HOWIE CAMPOS [facility] - [place]). Problems: Vomiting. Constipation. COPD - Chronic Obstructive Pulmonary Disease. GI Bleeding. Ureterolithiasis. Bowel Obstruction. Abcess left back near kidney. Leukemia. Rectal CA. Thyroid Disease. Additional Surgeries: Adenoidectomy. Appendectomy. Cholecystectomy. Hysterectomy. Muscle Graft. Ostomy. Right ankle surgery after fx. Tonsillectomy. Ulcer surgery. Medications: Albutreral inhaler (PRN). Benazepril-Hydrochlorothiazide Oral (Tablet 10-12.5 mg) 1 tablet, Day. L-thyroxine 125mcg one tab day. Oxygen 2l/nc. Allergies: No Known Drug Allergy. SOCIAL HISTORY Former smoker, end date 02/2017. Occasional alcohol use. No drug use. FAMILY HISTORY No significant family medical history. ADDITIONAL NOTES The nursing notes have been reviewed. PHYSICAL EXAM Vital Signs: 03/30/2017 21:26 BP: 107/60. HR: 93. RR: 18. O2 saturation: 90%. Temp: 98.9 F. Pain level now: 0/10. Have been reviewed. Appearance: Alert. Eyes: Pupils equal, round and reactive to light. ENT: Pharynx normal. Neck: Neck supple. CVS: Normal heart rate and rhythm. Heart sounds normal. Respiratory: No respiratory distress. Decreased air movement. Abdomen: Soft and nontender. No organomegaly. Back: ROM normal. Skin: Skin warm and dry. Extremities: Right thigh: severe erythema, moderate tenderness and mild swelling. (She has a healing surgical wound on the medial aspect of her right thigh with an approximately 3 cm area of wound dehiscence in the proximal aspect. There is erythema and increased warmth and tenderness surrounding most of the proximal aspect of this wound. There was scant serous drainage on the packing in the wound which I removed. I subsequently obtained a culture of the wound. No areas of fluctuance noted.). LABS, X-RAYS, AND EKG Laboratory Tests: CBC w Diff: (CALEB: 03/30/2017 21:35) ( MsgRcvd 03/30/2017 22:25) Final results Test Result Flag Units (Reference) WHITE BLOOD COUNT 27.0 *H K/uL (4.5-11.5) CRITICAL RESULTS CALLEDCalled to JUSTINA BRYANT RN 03/30/17 2212Were 2 patient identifiers used? YESWas the result read back? YES RED BLOOD COUNT 4.30 M/uL (4.00-5.20) HEMOGLOBIN 11.5 L gm/dL (12.0-16.0) HEMATOCRIT 35.2 L % (36.0-46.0) MEAN CELL VOLUME 82 fL (80-100) MEAN CORPUSCULAR HGB 27 pg (26-34) MEAN CORPUSCULAR HGB CONC 33 g/dL (31-37) RED CELL DISTRIBUTION WIDTH 19.0 H % (11.6-14.8) PLATELET COUNT 535 H K/uL (150-400) POLY % 71 % (50-75) BAND % 17 H % (0-8) LYMPH 7 L % (25-40) MONO 5 % (3-14) EOSINOPHIL % 0 % (0-4) BASOPHIL % 0 % (0-2) METAMYELOCYTE % 0 % (0-1) MYELOCYTE 0 % (0-1) OTHER CELL TYPE 0 RBC MORPHOLOGY NORMAL RBC POP Lactate, Serum: (CALEB: 03/30/2017 23:00) ( MsgRcvd 03/30/2017 23:39) Final results Test Result Flag Units (Reference) LACTIC ACID 1.3 mmol/L (0.4-2.0) CMP: (CALEB: 03/30/2017 21:35) ( MsgRcvd 03/30/2017 22:14) Final results Test Result Flag Units (Reference) GLUCOSE 137 H mg/dL (70-110) BUN 39 H mg/dL (7-18) CREATININE 1.4 H mg/dL (0.6-1.3) Estimated GFR 38.96 mL/min Estimated GFR- 47.22 mL/min Note: Persistent reduction over 3 months in eGFR<60 mL/min/1.73 m2 defines CKD. Patients with eGFR values>=60 mL/min/1.73 m2 may also have CKD if evidence ofpersistent proteinuria. Additional information may be foundat [email or web address].org. SODIUM 138 mmol/L (136-145) POTASSIUM 4.6 mmol/L (3.5-5.1) CHLORIDE 100 mmol/L (98-107) CARBON DIOXIDE 34 H mmol/L (21-32) CALCIUM 9.9 mg/dL (8.5-10.1) TOTAL PROTEIN 8.0 g/dL (6.4-8.2) ALBUMIN 2.8 L g/dL (3.3-5.0) BILIRUBIN, TOTAL 0.2 mg/dL (0.0-1.0) ALKALINE PHOSPHATASE 102 U/L (46-116) AST (SGOT) 26 U/L (15-37) ALT (SGPT) 21 U/L (12-78) . PROGRESS AND PROCEDURES Course of Care: Patient is stable. Discussed case with hospitalist, (Ricarda Castañeda Maximo requests that in addition to the vancomycin that the patient also be treated with Invanz.). Reviewed test results and need for additional work-up. Agreed upon treatment plan and decision to admit. Consult obtained. Dr. Vega at [facility] - he does not feel that any surgical intervention is necessary at this time but does feel that the patient should be admitted here and treated with IV antibiotics. Patient/family counseled. Old medical records reviewed. Disposition: Admitted. CLINICAL IMPRESSION Partial right thigh wound dehiscence of surgical wound. Cellulitis of the right thigh. (Electronically signed by Abelino Amaya MD 03/31/2017 2:32)
[2017-03-31] VITALS (7 sets, daily range): BP systolic 120–160; BP diastolic 48–70
--- NOTE | 2017-03-31 01:01 | HISTORY AND PHYSICAL ---
ADMITTED: 03/30/2017 CHIEF COMPLAINT: 1. Swelling and redness in the wound with a fever HISTORY OF PRESENT ILLNESS: This is a 76-year-old female who has a wound for 8 months since her surgery for the anal cancer, which has been doing fine until today, that the family and her son noticed the redness and swelling in that wound, but no pain, no discharge, so patient came to emergency department for further evaluation. The patient also had a fever, chills and sweats. MEDICAL/SURGICAL HISTORY: Past medical history: Remarkable for COPD, hypertension, leukemia, remote history of peptic ulcer disease, also anal cancer and hypothyroidism. Surgical history: Remarkable for anal cancer surgery with the laparoscopic repair, ending up with the wound in the right upper thigh, also with a colostomy, also stomach surgery and a hysterectomy, tonsillectomy, cholecystectomy and appendectomy. Hospitalization: Last one was in 07/2016 for anal cancer surgery and colostomy. MEDICATIONS: 1. Albuterol inhaler as needed. 2. Benazepril/hydrochlorothiazide 10/12.5 one tablet a day. 3. Levoxyl 125 mcg daily. 4. Oxygen supplement. ALLERGIES: 1. THERE ARE NO KNOWN DRUG ALLERGIES. SOCIAL HISTORY: The patient is , has 4 kids. Smoked 1 pack a day for 50 years, quit 6 years ago. Drinks alcohol on social basis. No history of drug abuse. FAMILY HISTORY: Noncontributory. REVIEW OF SYSTEMS: The patient has been losing weight. No difficulty with vision or hearing. Also, runny nose and a cough, but no congestion, no sore throat. Shortness of breath, which is chronic. No chest pain. No palpitations. No nausea, no vomiting , no indigestion or abdominal pain. Bowel movement per colostomy. No urination. No dysuria, frequency or incontinence. Generalized arthralgia. No headaches. No dizziness. No tingling, no numbness. No localized weakness. No syncope. PHYSICAL EXAMINATION: VITAL SIGNS: Blood pressure 107/60, heart rate is 93, respiration is 18, oxygen saturation 90% on room air, temperature is 98.9. GENERAL APPEARANCE: Well-developed, well-nourished, good body build, no acute distress. HEENT: Ears: Normal tympanic membranes. Mouth: Normal hypopharynx, no exudation, no erythema. Nose: Normal mucosa. NECK: Supple. No JVD. No carotid bruit. LUNGS: The patient has wheezing's scattered all over the lungs. HEART: Regular S1 and S2. No murmur. No S3 was heard. ABDOMEN: Soft, nontender. Bowel sounds are positive. EXTREMITIES: No edema. Good peripheral pulses. No signs of DVT or cyanosis. Coming to the right lower extremity, patient has an open wound on the upper thigh in medial area, seems clean, but it has got erythema around it and edema along with the scar tissue around it, but no tenderness. MUSCULOSKELETAL: Within normal limits. NEUROLOGIC: Alert and oriented x3. Cranial nerves are grossly intact. No motor deficits. Pupils are equal, round, and reactive to light. Extraocular movements are intact. No nystagmus. No cerebellar signs. Deep tendon reflexes are bilateral and symmetric. LAB/IMAGING: Laboratories: Lactic acid 1.3. White blood count is 27,000, hemoglobin is 11.5, hematocrit is 35.2, and platelet count is 535,000. Glucose 137, BUN is 39, creatinine is 1.4, sodium is 138, potassium is 4.6, chloride is 100, CO2 is 34, calcium is 9.9. Liver enzymes unremarkable. I do not see any UA is done. Chest x-ray: Unremarkable. IMPRESSION: 1. Sepsis due to open wound. 2. Open wound in the right upper thigh, chronic. 3. Leukemia. 4. Chronic obstructive pulmonary disease. 5. History of rectal cancer, status post colostomy. PLAN: We started patient on vancomycin and Invanz, we will continue that with IV hydration. We will put the blood pressure medication on hold for now. We will get the wound care consultation and blood cultures and culture from the wound was already taken in emergency department. We will continue all other outpatient medications.
--- NOTE | 2017-03-31 01:16 | Progress Note ---
Subjective General ADVANCED CARE PLAN History of Present Illness This is a 76-year-old female who has a wound for 8 months since her surgery for the anal cancer, which has been doing fine until today, that the family and her son noticed the redness and swelling in that wound, but no pain, no discharge, so patient came to emergency department for further evaluation. The patient also had a fever, chills and sweats. A discussion was undertaken with the patient regarding previous advance care arrangements/decisions. The following advanced directives were noted by the patient and discussed with me at the time of admission. ADVANCED DIRECTIVES: 1. Living well: No 2. POLST: No 3. CODE STATUS: Full Code 4. Durable Power Mems Engineer [facility] care: No 5. Donor card: Yes The patient's wishes were documented in the chart and orders regarding the patient's wishes entered into the [employer] CPOE system. The "Advance Care Plan Document" was not] distributed to patient to discuss with her family. Less than 30 minutes was spent in performing the above tasks and documentation of the patient's advanced care plan.
--- NOTE | 2017-03-31 01:16 | Progress Note ---
Subjective General ADVANCED CARE PLAN History of Present Illness This is a 76-year-old female who has a wound for 8 months since her surgery for the anal cancer, which has been doing fine until today, that the family and her son noticed the redness and swelling in that wound, but no pain, no discharge, so patient came to emergency department for further evaluation. The patient also had a fever, chills and sweats. A discussion was undertaken with the patient regarding previous advance care arrangements/decisions. The following advanced directives were noted by the patient and discussed with me at the time of admission. ADVANCED DIRECTIVES: 1. Living well: No 2. POLST: No 3. CODE STATUS: Full Code 4. Durable Power Instrument Lens Grinder [facility] care: No 5. Donor card: Yes The patient's wishes were documented in the chart and orders regarding the patient's wishes entered into the [employer] CPOE system. The "Advance Care Plan Document" was not] distributed to patient to discuss with her family. Less than 30 minutes was spent in performing the above tasks and documentation of the patient's advanced care plan.
--- NOTE | 2017-03-31 01:21 | NUR ---
ADMITTED FROM ED PER MIHAELA CLINE 1 GRAM INFUSING TO PERIPHERAL IV LAC. ABLE TO TRANSFER TO BED INDEPENDENTLY.
--- NOTE | 2017-03-31 02:33 | ED MED RECONCILIATION SUMMARY ---
Patient: REILLY PRESTON Medication Reconciliation Report [facility] VisitID: [id number] [address] [place] [address] 76y, F Registration Date/Time: 03/30/2017 Weight: 75.7 kg Height/Length: 65 in. BMI: 27.8 ALLERGIES: No Known Drug Allergy The patient's Home Medications are listed below: THE FOLLOWING MEDICATIONS NEED TO BE RECONCILED: Albutreral inhaler, PRN Benazepril-Hydrochlorothiazide Oral (10-12.5 mg) 1 tablet, Day L-thyroxine 125mcg one tab day Oxygen 2l/nc The source(s) of the original Home Medication information: Not obtained. The following Medications were given to the patient in the Emergency Department: Vancomycin [IVPB] IVPB bolus 0, then 1.5 gm, administered: 03/30/2017 11:31:00 PM Invanz [IVP] IVP 1 gm, administered: 03/31/2017 12:33:00 AM The following Medications were prescribed to the patient: None.
--- NOTE | 2017-03-31 02:33 | ED MAR SUMMARY ---
..... Medication Administration Record [facility] [address] [place] [address] Patient: REILLY PRESTON Visit ID: [id number] 76y, F Weight: 75.7 kg Height/Length: 65 in BMI: 27.8 ALLERGIES: No Known Drug Allergy Start 23:31 03/30/2017 Silvina Bey R.N., Continued Upon Admission 00:30 03/31/2017 Silvina Bey R.N. Medication Administered: VANCOMYCIN [IVPB], Dose: 1.5 gm IVPB over 1.5 hour(s), Dispensed: 250 mL bag, Site: #1 left AC. Medication Ordered: Vancomycin IV 1.5 gm/500 mL (NOW). Given 00:33 03/31/2017 Silvina Bey R.N. Medication Administered: INVANZ [IVP], Dose: 1 gm IVP over 30 minute(s), Site: #1 left AC. Medication Ordered: Invanz IV 1 gm (NOW).
--- NOTE | 2017-03-31 02:33 | ED DISCHARGE INSTRUCTIONS ---
Patient: REILLY PRESTON General Instructions [facility] VisitID: [id number] [place] [address] 76y, F Registration Date/Time: 03/30/2017 Partial right thigh wound dehiscence of surgical wound. Cellulitis of the right thigh. ADDITIONAL INFORMATION Cellulitis You have an infection of the skin known as cellulitis. This usually starts with a scrape, cut, insect bite, blister or other opening in the skin which becomes infected. This is a serious condition. It must be watched closely to be sure the infection is not spreading. With antibiotic treatment, the size of the red area will gradually shrink in size until the skin returns to normal. This will take 7-10 days. The red area should never increase in size once the antibiotic medicine has been started. Occasionally, an infection will be resistant to one antibiotic and another one will have to be used. Home Care: 1) Limit the use of the affected part, since excess movement can cause the infection to spread. 2) If the infection is on your leg, walk as little as possible during the first few days of the treatment. Keep your leg elevated while sitting. This will reduce swelling. 3) Take all of the antibiotic medicine exactly as directed until it is gone. Be careful not to miss any doses, especially during the first seven days. Follow Up with your doctor or this facility as directed. Check the infected area daily for the warning signs listed below. Get Prompt Medical Attention if any of the following occur: -- Spreading area of redness -- Increasing swelling or pain -- Appearance of pus or drainage -- Fever over 100.4 F (38.0 C) oral, or over 101.4 F (38.6 C) rectal, after two days on antibiotics You have been given the following additional information: Cellulitis (Electronically signed by Abelino Amaya MD 03/31/2017 2:32)
--- NOTE | 2017-03-31 02:33 | ED MED RECONCILIATION SUMMARY ---
Patient: REILLY PRESTON Medication Reconciliation Report [facility] VisitID: [id number] [address] [place] [address] 76y, F Registration Date/Time: 03/30/2017 Weight: 75.7 kg Height/Length: 65 in. BMI: 27.8 ALLERGIES: No Known Drug Allergy The patient's Home Medications are listed below: THE FOLLOWING MEDICATIONS NEED TO BE RECONCILED: Albutreral inhaler, PRN Benazepril-Hydrochlorothiazide Oral (10-12.5 mg) 1 tablet, Day L-thyroxine 125mcg one tab day Oxygen 2l/nc The source(s) of the original Home Medication information: Not obtained. The following Medications were given to the patient in the Emergency Department: Vancomycin [IVPB] IVPB bolus 0, then 1.5 gm, administered: 03/30/2017 11:31:00 PM Invanz [IVP] IVP 1 gm, administered: 03/31/2017 12:33:00 AM The following Medications were prescribed to the patient: None.
--- NOTE | 2017-03-31 02:33 | ED MAR SUMMARY ---
..... Medication Administration Record [facility] [address] [place] [address] Patient: REILLY PRESTON Visit ID: [id number] 76y, F Weight: 75.7 kg Height/Length: 65 in BMI: 27.8 ALLERGIES: No Known Drug Allergy Start 23:31 03/30/2017 Silvina Bey R.N., Continued Upon Admission 00:30 03/31/2017 Silvina Bey R.N. Medication Administered: VANCOMYCIN [IVPB], Dose: 1.5 gm IVPB over 1.5 hour(s), Dispensed: 250 mL bag, Site: #1 left AC. Medication Ordered: Vancomycin IV 1.5 gm/500 mL (NOW). Given 00:33 03/31/2017 Silvina Bey R.N. Medication Administered: INVANZ [IVP], Dose: 1 gm IVP over 30 minute(s), Site: #1 left AC. Medication Ordered: Invanz IV 1 gm (NOW).
--- NOTE | 2017-03-31 02:33 | ED DISCHARGE INSTRUCTIONS ---
Patient: REILLY PRESTON General Instructions [facility] VisitID: [id number] [place] [address] 76y, F Registration Date/Time: 03/30/2017 Partial right thigh wound dehiscence of surgical wound. Cellulitis of the right thigh. ADDITIONAL INFORMATION Cellulitis You have an infection of the skin known as cellulitis. This usually starts with a scrape, cut, insect bite, blister or other opening in the skin which becomes infected. This is a serious condition. It must be watched closely to be sure the infection is not spreading. With antibiotic treatment, the size of the red area will gradually shrink in size until the skin returns to normal. This will take 7-10 days. The red area should never increase in size once the antibiotic medicine has been started. Occasionally, an infection will be resistant to one antibiotic and another one will have to be used. Home Care: 1) Limit the use of the affected part, since excess movement can cause the infection to spread. 2) If the infection is on your leg, walk as little as possible during the first few days of the treatment. Keep your leg elevated while sitting. This will reduce swelling. 3) Take all of the antibiotic medicine exactly as directed until it is gone. Be careful not to miss any doses, especially during the first seven days. Follow Up with your doctor or this facility as directed. Check the infected area daily for the warning signs listed below. Get Prompt Medical Attention if any of the following occur: -- Spreading area of redness -- Increasing swelling or pain -- Appearance of pus or drainage -- Fever over 100.4 F (38.0 C) oral, or over 101.4 F (38.6 C) rectal, after two days on antibiotics You have been given the following additional information: Cellulitis (Electronically signed by Abelino Amaya MD 03/31/2017 2:32)
--- NOTE | 2017-03-31 06:02 | NUR ---
DENIES ANY PAIN, ASLEEP IN BETWEEN TOIETING NEEDS. AMBULATES TO TOILET USING IV POLE FOR SUPPORT. GAIT STEADY.
--- NOTE | 2017-03-31 06:47 | Progress Note ---
Subjective General Note Date: Admission Date: 03/30/2017 Hospital Day: 1 PCP: MIKAEL general Surgeon (Dr. Angel Vega- [phone]) Status: Inpatient acute care Advanced Directive: Full code (Call Jero) Room: 202 Brief History 76 yo WF with a history COPD, hypertension, leukemia, remote history of peptic ulcer disease, anal cancer and hypothyroidism presented with an infection of a wound. Seen the [facility] ED who found and open infected wound and placed on sepsis protocol. Patient was admitted under Dr. Theo Espinoza. CXR done before placed on the fitch. Patient was seen on the fitch showed widening of the mediastinum as perceived on previous film. Subjective Patient does not report a pain. Reports of the redness in the right thigh. Her main concern is her hernias in her abdominal region. Patient reports she has to hernias. Patient has colostomy bag is fully functional. Patient has no other complaints. She was seen one week ago for presurgical visitation with Dr. Vega. Patient states that Dr. Vega, ordered a CT of the chest. Patient was scheduled for surgical procedure on 04/02/2017. Patient requests None Physical Exam Vital Signs / I&Os Vital Signs Date Time Temp Pulse Resp B/P Pulse O2 O2 Flow FiO2 Ox Delivery Rate 03/31 0620 97.9 65 20 120/48 92 Nasal 2.0 Cannula 03/31 0321 98.1 83 19 157/67 92 Nasal 2.0 Cannula 03/31 0229 Nasal 2.0 Cannula 03/31 0158 2.0 03/31 0128 98.1 78 17 121/57 93 Nasal 2.0 Cannula General Appearance Oriented X3, Cooperative, Mild distress, appears fatigued, Lungs random wheeze Cardiovascular Regular rate and rhythm, Normal S1 and S2 Skin erythematous change; approximates the medial thigh. No drainage. , no fluctuation, right medial thigh LAB Results Laboratory Tests 03/30 03/30 03/31 2135 2300 0420 Chemistry Plasma Sodium (136 - 145 mmol/L) 138 Plasma Potassium (3.5 - 5.1 mmol/L) 4.6 Plasma Chloride (98 - 107 mmol/L) 100 CO2 (Enzymatic) (21 - 32 mmol/L) 34 BUN (7 - 18 mg/dL) 39 Creatinine (0.6 - 1.3 mg/dL) 1.4 Est GFR ( Amer) (mL/min) 47.22 Est GFR (Non-Af Amer) (mL/min) 38.96 Glucose (70 - 110 mg/dL) 137 Lactic Acid (0.4 - 2.0 mmol/L) 1.3 Plasma Calcium (8.5 - 10.1 mg/dL) 9.9 Total Bilirubin (0.0 - 1.0 mg/dL) 0.2 AST (15 - 37 U/L) 26 ALT (12 - 78 U/L) 21 Alkaline Phosphatase (46 - 116 U/L) 102 Total Protein (6.4 - 8.2 g/dL) 8.0 Albumin (3.3 - 5.0 g/dL) 2.8 Hematology WBC (4.5 - 11.5 K/uL) 27.0 RBC (4.00 - 5.20 M/uL) 4.30 Hgb (12.0 - 16.0 gm/dL) 11.5 Hct (36.0 - 46.0 %) 35.2 MCV (80 - 100 fL) 82 MCH (26 - 34 pg) 27 RDW (11.6 - 14.8 %) 19.0 Neut % (Auto) (50 - 75 %) 71 Lymph % (Auto) (25 - 40 %) 7 [place] % (Auto) (3 - 14 %) 5 Eos % (Auto) (0 - 4 %) 0 Baso % (Auto) (0 - 2 %) 0 Band Neutrophils % (0 - 8 %) 17 Metamyelocytes % (0 - 1 %) 0 Myelocytes (0 - 1 %) 0 Other Cell Type 0 Plt Count, EDTA (150 - 400 K/uL) 535 RBC Morphology NORMAL RBC POP PUBS MCHC (31 - 37 g/dL) 33 Urines Urine Color YELLOW Urine Appearance CLEAR Urine pH (5.0 - 8.0) 6.0 Ur Specific [place] (1.010 - 1.030) <= 1.005 Urine Protein (NEGATIVE) NEGATIVE Urine Ketones (NEGATIVE) NEGATIVE Urine Blood (NEGATIVE) NEGATIVE Urine Nitrite (NEGATIVE) NEGATIVE Urine Bilirubin (NEGATIVE) NEGATIVE Urine Urobilinogen (0.2 - 1.0 EU/dL) 0.2 Ur Leukocyte Esterase (NEGATIVE) TRACE Urine RBC (0 - 1 rbc/hpf) RARE Urine WBC (0 - 1 wbc/hpf) 1-3 Ur Epithelial Cells (0 - 5 EPI/hpf) 0-1 Urine Bacteria (NONE SEEN) TRACE (<1+) Urine Glucose (NEGATIVE) NEGATIVE Urine Comment CULTURE INDICATED Microbiology Date/Time Procedure - Status Source Growth 03/31 0420 Urine Culture - RECD URINE CC 03/31 0000 Deep Wound Culture - RES LEG 03/31 0000 Deep Wound Culture - RES LEG 03/31 0000 Gram Stain - RES LEG 03/30 2300 Blood Culture - RECD BLOOD 03/30 2256 Blood Culture - CAN BLOOD Cancelled: DUPLICATE ORDER. 03/30 2135 Blood Culture - RECD BLOOD Imaging chest xray 1. New widened mediastinum of uncertain etiology. Chest CT with contrast recommended. 2. Progression of nodular pleural parenchymal scarring laterally left upper lobe. 3. Stable right mid lung aspergilloma. 4. Underlying findings of COPD. Assessment and Plan Problem List 1. Open wound Plan Open wound, medial thigh. Source of blood borne infection. Diagnosed with potential sepsis or for rule out. Will Continue with the vancomycin and Invanz. 2. Sepsis Plan Sepsis rule out. Awaiting blood cultures and cultures from the wound. Patient has been maintaining blood pressure and heart rate. No fevers Continue with Vanc. and Invanz. 3. COPD (chronic obstructive pulmonary disease) Plan Monitor pulmonary function. Ask RT to come in for when necessary nebulized albuterol. 4. Hypothyroidism Status Chronic Plan Continue with the thyroid replacement. No changes 5. Hypertension Status Chronic Plan Blood pressure is well controlled. 10. Appropriate fluid balance. Caution with antihypertensives with septic workup. 6. Aspergillosis Plan As originally also seen on plain film. Ongoing long-standing illness. Previously treated, now dormant. Monitor airway. 7. Mediastinal widening Plan Mediastinum seen as white man from previous films CT scan of chest pending. Plan to compare with a previous [facility]. 8. Leukocytosis Plan Leukocytosis in the setting of concurrent sepsis and cellulitis with a remote history of leukemia. Now seen with widening of the mediastinum on chest film. Previous chest CT done at [facility]. We'll plan to compare. Maintain antibiotics. Continue to fluid source and wound care. Current status: Anticipated discharge date: Anticipated discharge placement: Patient care time: Time spent in chart review, patient interview, physical exam, CPOE, and care documentation: 25 minutes Visit to patient today: Complexity of care: Initial patient evaluation: Emergency department consultation DVT prophylaxis: GTI prophylaxis E&M Codes Rounding: Inpt-High/[id number]
--- NOTE | 2017-03-31 07:34 | DIAGNOSTIC IMAGING REPORT ---
PROCEDURE: XR CHEST 1 VIEW INDICATION: FEVER TECHNIQUE: Single view chest. 0049 hours COMPARISON: 01/30/2016 FINDINGS: Heart size remains normal. Mediastinum is not diffusely widened. No tracheal deviation. No central venous congestion. Ovoid 2.5 cm nodule in the right mid lung. Vague nodular density/pleuroparenchymal scarring laterally in the left upper lobe. Mildly hyperinflated lungs with hyperlucency at the apices. No effusion or pneumothorax. Intact osseous structures. IMPRESSION: 1. New widened mediastinum of uncertain etiology. Chest CT with contrast recommended. 2. Progression of nodular pleural parenchymal scarring laterally left upper lobe. 3. Stable right mid lung aspergilloma. 4. Underlying findings of COPD. 5. Findings discussed with Dr. Amaya in the emergency room at 07:25 a.m.
--- NOTE | 2017-03-31 08:58 | NUR ---
Pharmacy to dose Vancomycin for cellulitis. Loading dose 1500 mg last evening, will continue as 1250 mg IV q 24hrs. Next dose scheduled for 1800 today. Expect trough ~ 12.1; pharmacy will follow SCr and order trough as needed. jasper
--- NOTE | 2017-03-31 12:51 | NUR ---
In to see patient, removed moist gauze dressing from right inner upper thigh wound. Please see photographic wound assessment sheet for photo and wound characteristics. There is also diffuse redness radiating down pts inner thigh. to top of knee, there is unduration noted at approx 7 0'clock position, a hard knot. Dr. Meraz in to see patient, wound redressed with moist normal saline 2x2 gauze and covered with foam, as patient very sensitive to tapes. Pt states had surgery last July where they harvested muscle from site to seal anus. pt has a colostomy, that is functioning well, given a Goodwell belt, pt due to have hernia surgery this wednesday, report called to Dr. Burnette, will continue to monitor.
--- NOTE | 2017-03-31 13:19 | NUR ---
NUTRITION ASSESSMENT: S: Pt admitted with dx/o sepsis, open wound right upper thigh, leukemia, COPD. Pt PMH of COPD, HTN, leukemia, remote hx/o peptic ucler disease, anal cancer and hypothyroidism, hernia repair x 3 in 2016). Pt ate ~50% of breakfast this am. Pt was NPO for test at lunch. O: Diet Rx: General NKFA Wts: 76.4 kg Ht: 65" IBW: 62-70 kg BMI: 28 %IBW: 115% April 2016 admission wt: 90.4 kg; 15.5% wt loss in ~11 months. Est Kcals: ~4747-1895 kcals per day Est Pro: ~80-100 g per day Est Fluids: ~1980 mls per day Meds Incl: levothyroxine, protonix, vanco, IVFs 150 mls per hour, see eMar for complete list. Labs Incl: (03/30) glucose 137, BUN 39, Creat 1.4, Na+ 138, K+ 4.6, Ca+ 9.9, albumin 2.8, HCT 35.2, HGB 11.5, MCV 82, MCH 27 Skin: Jay 21; wound right upper medial thigh area, waffle in place. A: Pt PO intake appears to be fair. General diet in place . Pt to have surgery on Wednesday (hernia repair), rec BOOST bid between meals to help optmize kcal and protein intake for wound healing and prevention of further wt loss. Encourag PO and fluids: P: 1. BOOST BID between meals.
--- NOTE | 2017-03-31 14:22 | NUR ---
PATIENT LUNCH HELD D/T CT SCAN, SCAN COMPLETE AND OFFERED LUNCH TRAY UPON HER RETURN, SHE IS EATING LUNCH NOW. PER BELT SPLICER IV WOULD NOT FLUSH AFTER PROCEDURE AND WAS TENDER, IS FLUSHING FINE NOW AND PATIENT DENIES TENDERNESS AT IV SITE. WCTM
--- NOTE | 2017-03-31 16:41 | DIAGNOSTIC IMAGING REPORT ---
PROCEDURE: CT THORAX WITH CONTRAST INDICATION: comparison to previous films; widening of the mediastinum TECHNIQUE: 75 ml of Isovue 300 was injected intravenously and axial images were obtained of the chest with coronal and sagittal reformations. COMPARISON: CT chest 01/03/2016 and Chest x-ray 03/31/2017 FINDINGS: There is bulky adenopathy in the bilateral supraclavicular regions compressing the distal right internal jugular vein. The right supraclavicular mass measures about 4.0 x 2.9 cm. There is extensive mediastinal adenopathy and diffusely in the bilateral paratracheal regions, prevascular region, aorticopulmonary window, and bilateral hilar regions. Adenopathy compresses the superior vena cava to the right causing significant vessel narrowing. There is mild narrowing at the origin of the left common carotid artery. Heavy atherosclerotic calcification is seen at the origin of the left subclavian artery. Left upper lobe pulmonary arteries are narrowed at their origins by adenopathy. The distal trachea is also mildly narrowed. No axillary adenopathy. 2.5 cm left subdural sebaceous cyst adjacent to the sternum. A new small pericardial effusion. Normal sized heart and mild coronary calcification. 2.7 cm right middle lobe lung nodule with adjacent curvilinear air collection consistent with chronic aspergilloma. Slight interval increase in size of the posterior adjacent nodule now measuring 8 mm, previously 6 mm. Left lateral upper lobe nodular density and now measures about 12 mm and there is adjacent focal interstitial thickening and parenchymal nodularity. Similar mixed interstitial and alveolar parenchymal change in the posterolateral right lower lobe. Moderate right upper lobe emphysematous change. Moderate bibasilar atelectasis. Epigastric hernia including the left hepatic lobe, chronic. Severe, chronic left hydronephrosis. Surgically absent gallbladder. Moderate aortic atherosclerosis. Degenerative disc endplate changes in the thoracic spine. No suspicious osseous lesions. IMPRESSION: 1. Extensive mediastinal, supraclavicular, and left hilar adenopathy. Adenopathy compresses the superior vena cava. Correlate with SVC syndrome symptoms. Differential diagnosis includes lymphoma, less likely metastatic disease. 2. Suspicious lateral left upper lobe soft tissue nodule and adjacent interstitial and alveolar micronodularity. Similar pattern seen in the right posterolateral lower lobe. 3. Right middle lobe aspergilloma with slight increase in size of satellite nodule. 4. New small pericardial effusion. 5. Chronic severe left hydronephrosis. 6. Discussed with Dr. Burnette.
--- NOTE | 2017-03-31 18:02 | NUR ---
PATIENT RESTING IN CHAIR NOW, WATCHING TV. IN NO DISTRESS. NO COMPLAINTS AT THIS TIME. HEPARIN FOR DVT PREVENTION. WAS TOLD DR IS AWARE OF CURRENT LAB VALUES. DRESSIGN ON THIGH C/D/I CURRENTLY.
--- NOTE | 2017-03-31 19:45 | CONSULTATION REPORT ---
DATE OF CONSULTATION: 03/31/2017 CHIEF COMPLAINT: 1. Swelling and redness in the right thigh HISTORY OF PRESENT ILLNESS: The patient is a 76-year-old woman who underwent a muscular flap treatment of a perianal operation. This was done at another institution. This patient had the diagnosis of squamous cell carcinoma of the anus, made by Dr. Chew and subsequently underwent radiation and surgery. She currently has in place a left lower quadrant colostomy and apparently had some type of healing problem and required a muscular flap, potentially a gracilis flap from the thigh to the buttock region. The wound has remained open now during last 8 months and has been treated with moist saline dressings. She recently developed acute erythema in the anterior thigh and was brought to the emergency department for this reason. Since being in the hospital, the patient also underwent a chest CT scan due to findings of a widened mediastinum on chest x-ray. The patient has a known stable right mid lung aspergilloma, was also found to have on CT scan the new finding of mediastinal bulky adenopathy, as well as right supraclavicular adenopathy, suspicious for lymphoma with compression of the superior vena cava. MEDICAL/SURGICAL HISTORY: Past medical history: Includes COPD, hypertension, leukemia, peptic ulcer disease, anal carcinoma, hypothyroidism. Past surgery: Anal cancer surgery with multiple surgeries and a left lower quadrant colostomy. Previous surgery includes stomach surgery, hysterectomy, tonsillectomy, cholecystectomy and appendectomy. The flap from the thigh was performed in 07/2016. MEDICATIONS: 1. Albuterol. 2. Benazepril. 3. Hydrochlorothiazide. 4. Levoxyl. 5. Supplemental oxygen. ALLERGIES: 1. NONE TO MEDICATIONS. SOCIAL HISTORY: The patient is . She smoked 1 pack per day for 50 years and quit smoking about 6 years ago. She takes occasional social alcohol. FAMILY HISTORY: There are family members with atherosclerotic cardiovascular disease and diabetes. REVIEW OF SYSTEMS: A multipoint review of systems obtained on 03/30/[address] Chowdary. PHYSICAL EXAMINATION: VITAL SIGNS: Temperature 98.2, pulse of 76, respiration of 20, blood pressure 142/60, O2 95% on 2 L nasal oxygen. GENERAL: The patient is alert and cooperative. She is sitting upright in a chair. HEENT: Her ears and nose were examined. There are no gross external lesions. Eyes are equal. She is anicteric. NECK: Palpation reveals a right supraclavicular mass in the scalene fossa about 3 cm or larger in diameter. The thyroid does not feel enlarged. LUNGS: Demonstrate mild wheezing. HEART: Regular, without murmur. ABDOMEN: Reveals no specific tenderness or masses. EXTREMITIES: Examination of the thigh reveals erythema in the anterior thigh on the right side. This is not indurated or hard. There is an open ulcer of the upper thigh, approximately 3 x 4 cm with tunneling, another 2-3 cm distally when checked with a Q-tip. There is some squamous mucosa that has grown down, but has not filled the wound. There is some minimal induration in the tissues overlying the sinus tract and tunneling area. NEUROLOGIC: The patient is alert and oriented. She appears to ambulate without restriction and moves her extremities without restriction. IMPRESSION: 1. Chronic wound of right thigh with acute cellulitis. 2. Mediastinal and cervical adenopathy. 3. Chronic obstructive pulmonary disease. 4. History of rectal carcinoma. PLAN: I concur with antibiotic therapy for initially for cellulitis and some moist dressings. Ultimately, for this wound to heal I think it should be opened up more distally, thoroughly debrided and probably treated with a VAC dressing, but in the meantime, the current methodology is sufficient. Additionally, this patient requires a biopsy of her chest pathology. I think the supraclavicular node is amenable to ultrasound-guided needle biopsy by the radiology department and I will request this to be done as soon as possible to get pathology going.
--- NOTE | 2017-03-31 21:27 | NUR ---
DID DRESSING CHANGE PER ORDERS FROM WOUND CARE NURSE NATHAN. PT TOLERATED WELL. WAS IN NO DISTRESS. WOUND 1CM DEEP.STILL RED AROUND PATIENTS RIGHT UPPER THIGH AREA.
[2017-04-01] VITALS (7 sets, daily range): BP systolic 136–167; BP diastolic 54–78
--- NOTE | 2017-04-01 06:33 | NUR ---
Pt slept off and on throught the night, up to the bathroom many times independently. No complaints of pain. VSS on 2L O2.
--- NOTE | 2017-04-01 07:22 | Progress Note ---
Subjective General Note Date: April 01, 2017 Admission Date: April 09, 2017 Hospital Day: 3 PCP: Joao Kuhn M.D. direct response consultant: General Surgeon (Dr. Angel Vega- [phone]) Status: Inpatient, ACU Advanced Directive: FULL CODE Room: 202 Brief History The patient is a 76 yo white female with a history COPD, hypertension, leukemia, remote history of peptic ulcer disease, anal cancer, and hypothyroidism presented secondary to suspected infection of right thigh wound. The patient was seen in [facility] ED who found and open infected wound/cellulitis and placed on sepsis protocol. Patient was admitted under Dr. Theo Chowdary. CXR done before placed on the fitch. Patient was seen on the fitch showed widening of the mediastinum as perceived on previous film. For other history present illness, past medical history, family history, social history, review of systems, and admission physical examination please see the patient's history and physical examination and ER visit note in the patient's medical record. Subjective The patient states she is doing well today. No specific complaints. Anxious about lymph node biopsy today. Pain well-controlled Patient requests No specific Medications and Allergies Medications Current Medications Sig/Kirstie Start time Last Medication Dose Route Stop Time Status Admin Clarify Med Order See Dose 1730 05/12 1730 AC Insts (1) IV 05 1731 Vancomycin HCl/ 1,000 MG 2300 / 2300 CAN Dextrose IV Ertapenem 500 MG 2100 / 2100 AC 05 Sodium Chloride 50 ML IV 2110 Vancomycin/Sodium 250 ML 1800 05/10 1800 AC 05/10 Chloride IV 1755 Vancomycin HCl See Dose ASDIRECTED 03/31 0930 AC Insts (2) IV Heparin Sodium 5,000 UNITS BID 03/31 0900 AC 03/31 (Porcine) SC 2110 Albuterol/Ipratropium 3 ML RTQID 03/31 0800 AC 03/31 IN 1999 Levothyroxine Sodium 100 MCG 03/31 06 AC 04/01 PO 0618 Levothyroxine Sodium 25 MCG 03/31 0600 AC 04/01 PO 0618 Pantoprazole Sodium 40 MG DAILY@00 / 0600 AC 05 IV 0618 Dextrose/Sodium 1,000 ML ASDIRECTED 03/31 0030 AC 05 Chloride IV 0710 Dose Instructions: (1)Clarify Med Order: VANCOMYCIN TROUGH (2)Vancomycin HCl: VANCO PER PHARMACY Allergies Coded Allergies: NKA (03/31/17) Physical Exam Vital Signs / I&Os Vital Signs Date Time Temp Pulse Resp B/P Pulse O2 O2 Flow FiO2 Ox Delivery Rate 04/01 0630 98.1 83 18 149/65 91 Nasal 2.0 Cannula 04/01 0254 98.1 72 15 167/78 94 Nasal 2.0 Cannula 03/31 2352 Nasal 2.0 Cannula 03/31 2301 98.4 83 17 160/70 91 Nasal 2.0 Cannula 03/31 1958 2.0 03/31 1849 98.1 78 18 142/54 93 Nasal 2.0 Cannula 03/31 1622 2.0 03/31 1509 98.2 76 20 142/60 95 Nasal 2.0 Cannula 03/31 1400 2.0 03/31 1010 97.9 72 20 124/57 93 Nasal 2.0 Cannula 03/31 0840 2.0 03/31 0815 Nasal 2.0 Cannula I&O 04/01 0000 03/31 1600 03/31 0800 Intake Total 240 1120 1170 Output Total 900 100 330 Balance -660 1020 840 General Appearance Alert, Oriented X3, Cooperative, No acute distress Lungs Clear to auscultation Cardiovascular Regular rate and rhythm, Normal S1 and S2 Abdomen Normal bowel sounds, Soft, No tenderness Extremities No cyanosis, No clubbing, right inner thigh shows mild erythema without induration present. Nontender to palpation. Thigh wound unchanged. Tunneling present. Neurological Cranial nerves intact, No lateralizing signs Psych/Mental Status Mental status normal, Mood normal LAB Results Laboratory Tests 04/01 04/01 0540 0500 Chemistry Plasma Sodium (136 - 145 mmol/L) 147 Cancelled Plasma Potassium (3.5 - 5.1 mmol/L) 4.4 Cancelled Plasma Chloride (98 - 107 mmol/L) 109 Cancelled CO2 (Enzymatic) (21 - 32 mmol/L) 31 Cancelled BUN (7 - 18 mg/dL) 25 Cancelled Creatinine (0.6 - 1.3 mg/dL) 1.2 Cancelled Est GFR ( Amer) (mL/min) 56.42 Cancelled Est GFR (Non-Af Amer) (mL/min) 46.55 Cancelled Glucose (70 - 110 mg/dL) 116 Cancelled Plasma Calcium (8.5 - 10.1 mg/dL) 9.0 Cancelled Total Bilirubin (0.0 - 1.0 mg/dL) < 0.1 AST (15 - 37 U/L) 23 ALT (12 - 78 U/L) 17 Alkaline Phosphatase (46 - 116 U/L) 89 Total Protein (6.4 - 8.2 g/dL) 6.3 Albumin (3.3 - 5.0 g/dL) 2.3 Coagulation INR (0.8 - 1.2) 1.1 Hematology WBC (4.5 - 11.5 K/uL) 14.6 Cancelled RBC (4.00 - 5.20 M/uL) 3.91 Cancelled Hgb (12.0 - 16.0 gm/dL) 10.3 Cancelled Hct (36.0 - 46.0 %) 32.6 Cancelled MCV (80 - 100 fL) 83 Cancelled MCH (26 - 34 pg) 26 Cancelled RDW (11.6 - 14.8 %) 18.5 Cancelled Neut % (Auto) (50 - 75 %) 72.8 Lymph % (Auto) (25 - 40 %) 15.3 [place] % (Auto) (3 - 14 %) 10.2 Eos % (Auto) (0 - 4 %) 1.6 Baso % (Auto) (0 - 2 %) 0.1 Plt Count, EDTA (150 - 400 K/uL) 449 Cancelled RBC Morphology (18654 A) 1+ STOMATOCYTES PUBS MCHC (31 - 37 g/dL) 32 Cancelled Assessment and Plan Problem List 1. Open wound Plan -Wound right upper-inner thigh unchanged -No significant drainage. -Persistent mild erythema upper thigh -No induration present -No significant tenderness to palpation -Continue IV antimicrobial switching to oral in a.m. (ertapenem/vancomycin) -Follow per Dr. Meraz/Wound Care clinic 2. Sepsis Plan -Patient presents with suspected sepsis -Elevated WBC -Patient now afebrile, WBC improved in dropping from 27.0 to 14.6 today. -Continue present antimicrobial therapy (ertapenem/vancomycin) -Wound cultures grew out gram-negative soo, strep group B. Await final C&S -Blood cultures negative -Urine C&S showed no significant organisms -Switch to oral medications in a.m. with improved status 3. COPD (chronic obstructive pulmonary disease) Plan -Stable -O2 sat 91% on 2 L/m nasal cannula -No complaints of shortness of breath -Continue DuoNeb every 6 hours -Monitor 4. Hypothyroidism Status Chronic Plan -Patient with long-standing history of hypothyroidism -Continue Synthroid 0.125 mg by mouth daily -TSH ordered, pending -Monitor 5. Hypertension Status Chronic Plan -Patient with long-standing history of hypertension -Blood pressure borderline elevated at 149/65 mmHg -Low-salt diet -Placed back on lisinopril 10 mg by mouth twice a day -Monitor 6. Aspergillosis Plan -Not problematic at this time -Monitor 7. Leukocytosis Plan -Patient with marked leukocytosis on admission -Status improved -Questionably related to sepsis/cellulitis -Monitor 8. Anemia Status Acute Onset Date Unknown Plan -Patient with findings of mild anemia -H&H 10.3/32.6. MCV 83 -Previous history of B12 deficiency/iron deficiency -Recheck B12 level, folate, and iron studies -Monitor 9. Hypernatremia Status Acute Onset Date Unknown Plan -Patient with findings of mild hyponatremia -Sodium 147 -Change IV fluids to D5 0.2 normal saline at 75 cc an hour -Encourage oral fluid intake. 10. Hyperglycemia Status Acute Onset Date Unknown Plan -Patient with findings of mild hyperglycemia -Before meals and at bedtime blood sugar checks -Check hemoglobin A1c in a.m. 11. Mediastinal adenopathy Status Acute Onset Date Unknown Plan -The patient presents with diffuse lymphadenopathy -Mediastinal, supraclavicular clavicular -Cannot rule out lymphoma/reactive lymphadenopathy -Biopsy today per Dr. Groves -Monitor Current status: Fair, unchanged Anticipated discharge date: Anticipated discharge 1-2 days Anticipated discharge placement: Home Patient care time: Time spent in chart review, patient interview, physical exam, CPOE, and care documentation: 35 minutes Visit to patient today: 2 Complexity of care: High The patient's care will be assumed by Dr. Joao Kuhn (patient's PCP) in a.m. Case discussed briefly with him this a.m. E&M Codes Rounding: Inpt-High/[id number]
--- NOTE | 2017-04-01 09:21 | NUR ---
In to do dressing change per Dr. Meraz, old dressing removed, scant drainage noted, serosanginous. Dr. Summers and Pts RN in to visualize wound. Cleansed with NS, filled with moist NS 2x2 gauze, covered with dry gauze and secured with transparent film tape. will bring colostomy supplies later today for staff appliance change.
--- NOTE | 2017-04-01 13:40 | NUR ---
NUTRITION FOLLOW UP NOTE: PO intake this am was ~30%, pt was to have an ultrasound and was asked to eat a light breakfast, then NPO for lunch for further testing. Pt diet changed to high protein for wound healing and BOOST bid between meals added as well to promote wound healing as well. Rec encourage po and fluids of choice. Pt able to make food preferences known.
--- NOTE | 2017-04-01 16:05 | NUR ---
PATIENT LEFT FOR PROCEDURE DOWN IN IMAGING TO HAVE BIOPSY OF LYMPH NODES AT 1425 - LEFT WITH ABX RUNNING VIA PIGGY BACK. AT BEDSIDE. CHANGED COLOSTOMY BAG WITH WOUND CARE NURSE TODAY, PATIENT DOES MOST OF THE SET UP, AND TOLERATED WELL. TM
--- NOTE | 2017-04-01 17:51 | NUR ---
CALLED PHARMACY AND THEY TOLD ME KAREL DIDNT NEED ANOTHER VANO TROUGH BETWEEN DOSES FOR HER NEXT DOSE TONIGHT. SHE WILL GET A VANCO TROUGH TOMORROW. PHARMACY ASSURED ME THAT THAT WAS OK.
--- NOTE | 2017-04-01 18:05 | NUR ---
dr tobin told me via verbal order to hold patients heparin for 2100 tonight. fxed order to pharmacy.
--- NOTE | 2017-04-01 19:35 | DIAGNOSTIC IMAGING REPORT ---
PROCEDURE: US ST NECK/THORAX BIOPSY INDICATION: RT NECK LYMPHADENOPATHY TECHNIQUE: Written informed consent was obtained from the patient prior to the procedure. Risks discussed included but were not limited to bleeding, infection, injury to adjacent structures, pain, nondiagnostic sample and allergic reaction. It was agreed to proceed. Supine position with the head turned to the left. Preliminary ultrasound imaging demonstrated numerous pathologic right neck lymph nodes in the supraclavicular region. An appropriate skin entry site was chosen and marked. The skin was prepped and draped in the usual sterile fashion. Skin and subcutaneous tissue was anesthetized thoroughly with 1% lidocaine. Under continuous sonographic guidance, a 25 gauge needle was directed into one of the abnormal lymph nodes. Fine needle aspiration was performed. Five separate samples were obtained using [id number] needles each time. Samples were placed into cytology solution. Then, a small skin stefan was made and a 19-gauge introducer needle was directed into one large lymph nodes. Through this, four passes were made with a 20-gauge Temno biopsy device. Two samples were placed into formalin and two samples were placed into RPMI solution for flow cytometry. Static and cine images were acquired documenting the needle in position within the lymph nodes during biopsy. Sample adequacy was assessed. The needle was removed, hemostasis was achieved, the skin was cleansed, and a sterile bandage was applied. The patient tolerated the procedure well and no immediate complications were noted. She was sent back to her in patient room in stable condition for observation. Samples were taken to the lab. COMPARISON: CT chest 03/31/2017 and ultrasound of the neck performed the same day. FINDINGS: Multiple pathologically enlarged right supraclavicular and lower anterior cervical chain lymph nodes. IMPRESSION: 1. Successful ultrasound-guided core needle biopsy and fine needle aspiration of multiple pathologic right neck lymph nodes. 2. Pathology is pending.
--- NOTE | 2017-04-01 19:51 | NUR ---
I discussed with the patient their current medications, possible side effects, and answered questions.
--- NOTE | 2017-04-01 22:54 | NUR ---
did dressgin change per orders in binder.
[2017-04-02 02:31] VITALS: BP 130/54
--- NOTE | 2017-04-02 05:35 | NUR ---
PT SLEPT WELL DURING THE NIGHT. VSS AND NO COMPLAINTS OF PAIN. ON 2L O2. UP TO BATHROOM INDEPENDENTLY.
[2017-04-02 06:49] VITALS: BP 134/53
--- NOTE | 2017-04-02 07:12 | Progress Note ---
Subjective General I FEEL TERRIBLE. I CAN HARDLY BREATH. Constitutional Chills, Sweats, Weakness, Malaise. Denies: Fever. Eyes Denies: Pain, Vision Change, Conjunctival Inflammation, Eyelid Inflammation, Redness, Other. ENT Denies: Ear Pain, Ear Discharge, Nose Pain, Nasal Discharge, Nasal Congestion, Mouth Pain, Mouth Swelling, Throat Pain, Throat Swelling. Respiratory Cough, SOB w/exertion, Wheezing, Sputum (WHIE THICK). Denies: Hemoptysis, Pleuritic Pain. Cardiovascular Orthopnea, PND. Denies: Chest Pain, Palpitations, Edema, Light-headedness. Gastrointestinal Constipation, Other (COLOSTOMY W/O MUCH OUTPUT). Denies: Nausea, Vomiting, Abdominal Pain, Diarrhea, Melena, Hematochezia. Genitourinary Denies: Dysuria, Frequency, Incontinence, Hematuria, Retention. Skin Rash. Denies: Jaundice, Bruising. Neurological Denies: Weakness, Numbness, Incoordination, Change in speech, Confusion, Seizures. Physical Exam Vital Signs / I&Os Vital Signs Date Time Temp Pulse Resp B/P Pulse O2 O2 Flow FiO2 Ox Delivery Rate 04/02 0649 98.4 78 18 134/53 91 Nasal 2.0 Cannula 04/02 0231 98.1 81 15 130/54 94 Nasal 2.0 Cannula 04/02 0051 Nasal 2.0 Cannula 04/01 2234 98.4 81 17 144/58 93 Nasal 2.0 Cannula 04/01 2115 98.1 78 151/68 92 04/01 1940 2.0 04/01 1817 98.4 85 20 142/60 94 Nasal 2.0 Cannula 04/01 1637 2.0 04/01 1616 98.1 81 20 156/65 88 Nasal 1.0 Cannula 04/01 1341 2.0 04/01 1111 98.2 77 22 136/54 91 Nasal 2.0 Cannula 04/01 0830 Nasal 2.0 Cannula 04/01 0800 2.0 I&O 04/01 0800 04/01 1600 04/02 0000 Intake Total 2775 1106 240 Output Total 600 425 400 Balance 2175 681 -160 General Appearance Alert, Oriented X3, Cooperative, Moderate distress HEENT DRY Lungs EXP WHEEZING Breasts Symmetric Neck Supple, No JVD, No thyromegaly, HARD RIGHT SC NODE S/P BX Cardiovascular Regular rate and rhythm, No murmurs, gallops, rubs Abdomen Normal bowel sounds, Soft, No tenderness, STOOL IN BAG Extremities No cyanosis, No clubbing, No edema, Normal pulses, No tenderness, Strength = upper ext's, Strength = lower ext's Skin R GROIN WOUND OPEN AND GRANULATING BASE Neurological Normal speech, Normal tone, Sensation intact, Cranial nerves intact , Strength 5/5 x4 ext's, No lateralizing signs Psych/Mental Status Mental status normal, Mood normal LAB Results Laboratory Tests 04/02 0540 Chemistry Plasma Sodium (136 - 145 mmol/L) 144 Plasma Potassium (3.5 - 5.1 mmol/L) 4.0 Plasma Chloride (98 - 107 mmol/L) 108 CO2 (Enzymatic) (21 - 32 mmol/L) 32 BUN (7 - 18 mg/dL) 16 Creatinine (0.6 - 1.3 mg/dL) 1.1 Est GFR ( Amer) (mL/min) >60 Est GFR (Non-Af Amer) (mL/min) 51.46 Glucose (70 - 110 mg/dL) 101 Plasma Calcium (8.5 - 10.1 mg/dL) 9.1 Hematology WBC (4.5 - 11.5 K/uL) 14.8 RBC (4.00 - 5.20 M/uL) 3.86 Hgb (12.0 - 16.0 gm/dL) 10.2 Hct (36.0 - 46.0 %) 32.1 MCV (80 - 100 fL) 83 MCH (26 - 34 pg) 26 RDW (11.6 - 14.8 %) 19.2 Neut % (Auto) (50 - 75 %) 67 Lymph % (Auto) (25 - 40 %) 23 [place] % (Auto) (3 - 14 %) 9 Eos % (Auto) (0 - 4 %) 1 Baso % (Auto) (0 - 2 %) 0 Band Neutrophils % (0 - 8 %) 0 Metamyelocytes % (0 - 1 %) 0 Myelocytes (0 - 1 %) 0 Other Cell Type 0 Plt Count, EDTA (150 - 400 K/uL) 419 Polychromasia 1+ Hypochromic-Microcytic 1+ Anisocytosis (manual) 1+ PUBS MCHC (31 - 37 g/dL) 32 Assessment and Plan Problem List 1. Open wound Plan CLEAN AND GRANULATING WITH MUCH LESS ERYTH 2. Sepsis Plan STILL ON 2 ANTIBIOTICS? 3. COPD (chronic obstructive pulmonary disease) Plan ON ALBUTEROL NEB. WILL ADD SOLUMEDROL 4. RECURRENT PERIANAL SQUAMOUS CELL CA Plan STABLE W/O NEW GROWTHS 5. Leukemia Plan CHRONICALLY ELEVAATED WBC IN [id number] RANGE 6. Mediastinal widening Plan S/P BX OF R SC NODE YESTERDAY. PATH PENDING 7. Aspergillosis Plan HX OF 8. COPD (chronic obstructive pulmonary disease) with chronic bronchitis Status Chronic Plan WILL ADD STEROIDS 9. 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 Ventral hernia Plan SURGERY WILL BE DELAYED E&M Codes Rounding: Inpt-Moderate/[id number]
[2017-04-02 11:15] VITALS: BP 139/55
--- NOTE | 2017-04-02 14:25 | NUR ---
In to see patient, who states that her her colostomy bag is leaking, complete colostomy change done, patient had her own supplies except I provided a gilberto cohesive seal and some Mastisol skin adhesive, as pt states she uses spray adhesive at home. Also completed dressing change to right inner thigh wound: cleansed with NS and moist saline gauze 2x2 applied and filled all of wound space, including tunneling at 7 0'clock. covered with dry 2x2 and secured with transparent film tape. Pt tolerated all procedures well, report given to patients RN.
[2017-04-02 14:36] VITALS: BP 152/68
--- NOTE | 2017-04-02 15:00 | NUR ---
PT HAS BEEN OOB AD DAYSI AND USING THE BR INDEPENDENTLY. NO S/S OF RESPIRATORY DISTRESS. C/O NO PAIN. COLOSTOMY APPLIANCE CHANGED BY EXPORT FREIGHT SPECIALIST BECAUSE APPLIANCE CAME OFF. SHE ALSO CHANGED INNER THIGH DRESSING TO WOUND. PT SHOWERED AND HAS BEEN IN HER CHAIR ALL DAY READING.
[2017-04-02 18:31] VITALS: BP 145/63
[2017-04-02 22:45] VITALS: BP 173/76
--- NOTE | 2017-04-02 22:50 | NUR ---
PT A&OX3, LS HAVE EXP WHEEZES THROUGHOUT AND HR REG. COLOSTOMY CLEANED AND REDRESSED TODAY W/ NO ISSUES. LOOSE WHITE SPUTUM AFTER BREATHING TREATMENTS. NO C/O PAIN OR NAUSEA. TOLERATING 2L PER NC AT 90%. RESTING W/ CALL LIGHT IN REACH.
[2017-04-03 02:35] VITALS: BP 129/63
[2017-04-03 06:15] VITALS: BP 159/71
--- NOTE | 2017-04-03 08:00 | Progress Note ---
Subjective General FEELING STRONGER AND WALKING. LESS SOB Constitutional Other (JTS ALWAYS HURT). Denies: Fever, Chills, Sweats, Weakness, Malaise. Eyes Denies: Pain, Vision Change, Conjunctival Inflammation, Eyelid Inflammation, Redness, Other. ENT Denies: Ear Pain, Ear Discharge, Nose Pain, Nasal Discharge, Nasal Congestion, Mouth Pain, Mouth Swelling, Throat Pain, Throat Swelling. Respiratory Cough, Wheezing, Sputum (SOME WHITE PHLEGM AFTER TREATM). Denies: Dry, SOB w/ exertion, Hemoptysis, Pleuritic Pain. Cardiovascular Denies: Chest Pain, Palpitations, Orthopnea, PND, Edema, Light-headedness. Gastrointestinal Denies: Nausea, Vomiting, Abdominal Pain, Diarrhea, Constipation, Melena, Hematochezia. Genitourinary Frequency. Denies: Dysuria, Incontinence, Hematuria, Retention. Musculoskeletal Shoulder Pain, Arm Pain, Back Pain, Leg Pain. Skin Other (GROIN WOUND CLEAN AND HEALING ). Neurological Denies: Weakness, Numbness, Incoordination, Change in speech, Confusion, Seizures. Physical Exam Vital Signs / I&Os Vital Signs Date Time Temp Pulse Resp B/P Pulse O2 O2 Flow FiO2 Ox Delivery Rate 04/03 0615 97.2 75 14 159/71 88 Nasal 2.0 Cannula 04/03 0235 66 15 129/63 93 Nasal 2.0 Cannula 04/03 0115 Nasal 2.0 Cannula 04/02 2245 98.1 84 17 173/76 90 Nasal 2.0 Cannula 04/02 2030 2.0 04/02 1831 99.0 85 20 145/63 94 Nasal 2.0 Cannula 04/02 1641 2.0 04/02 1630 Nasal 2.0 Cannula 04/02 1436 98.1 79 20 152/68 04/02 1200 2.0 04/02 1115 98.1 72 18 139/55 93 Nasal 2.0 Cannula 04/02 1000 Nasal 2.0 Cannula 04/02 0803 2.0 I&O 04/02 0800 04/02 1600 04/03 0000 Intake Total 1854 1003 581 Output Total 500 550 Balance 1354 453 581 General Appearance Alert, Oriented X3, Cooperative, No acute distress HEENT PERRLA, EOMI, Moist mucous membranes Lungs EXP WHEEZE, NO DISTRESS Neck Supple, No JVD, HARD R SC NODE Cardiovascular Regular rate and rhythm, Normal S1 and S2, No murmurs, gallops, rubs Abdomen Normal exam, COLOSTOMY Rectal S/P SURGERY AND W/COLOSTOMY Extremities No cyanosis, No clubbing, No edema, Strength = upper ext's, Strength = lower ext's Skin OPEN CLEAN AND GRANULATING R GROIN WOUND Neurological Normal exam, No lateralizing signs Psych/Mental Status Mental status normal, Mood normal Assessment and Plan Problem List 1. Open wound Plan AWAITING CULTURE SENSITIVITY AND THEN COULD D/C ON APPROPRIATE ORAL ANTIBIOTIC 2. COPD (chronic obstructive pulmonary disease) with chronic bronchitis Status Chronic Plan IMPROVED WITH ADDITION OF STEROIDS. WILL CHANGE TO ORAL PREDNISONE TODAY 3. Mediastinal adenopathy Status Acute Onset Date Unknown Plan AWAITING PATHOLOGY REPORT AND THEN WILL F/U WITH DR ROMO
[2017-04-03] MEDS ORDERED: PREDNISONE20 MG PO (08:11)
[2017-04-03] MEDS ORDERED: LEVOFLOXACIN500 MG PO (08:12)
--- NOTE | 2017-04-03 08:16 | Provider's Discharge Care Plan ---
Problem, Goal, Plan Problem List 1. Open wound Goals: Therapeutic intervention Instructions: Take meds as directed, DRESSING CHANGES 2X/DAY 2. COPD (chronic obstructive pulmonary disease) with chronic bronchitis Goals: Improve disease control Instructions: Take meds as directed 3. Mediastinal adenopathy Goals: Diagnostic testing Instructions: Follow up as needed (DISCUSS BIOPSY REORT WITH )
--- NOTE | 2017-04-04 07:31 | Discharge Summary ---
Discharge Summary Report Admit Date 03/30/17 Discharge Date 04/03/17 Admission Diagnosis CELLULITIS Discharge Diagnosis CELLULITIS; SEPSIS; MEDIASTINAL LYMPHADENOPATHY; COPD W/BRONCHITIS Brief History PT ADMITTED FOR INFECTED OPEN WOUND OF R THIGH S/P SQ. CELL CA SURGERY OF PERINEUM/RECTUM AND COLOSTOMY. Hospital Course TREATED FOR INFECTION WITH INVANZ AND VANCO. FOOD RESPONSE SO TAILORED TO INVANZ AND THE LEVAQUIN FOR INFECTION. LEUKOCYTOSIS IMPROVED. CHEST CT SUGGESTED BULKY ADENOPATHY. R SC NODE BX'D AND PATH IS PENDING. SURGERY AND ONCOLOGY NOTIFIED. COPD AND BRONCHIS TX'D WITH ABC, ALBUT NEB, AND STEROIDS. General Appearance Alert, Oriented X3, Cooperative, No acute distress HEENT Mucous membran moist/pink Lungs EXP WHEEZE- MILD Breasts Symmetric Cardiovascular Regular Rate, No murmurs Abdomen Soft, No tenderness, VENTRAL HERNIA, COLOSTOMY Pelvic SCARRING Skin OPEN CLEAN WOUND R THIGH Neurological Normal gait, Normal tone Psych/Mental Status Mood NL, APPROPRIATELY WORRIED Discharge Instructions/Meds CHANGE DRESSING 2X/DAY FINISH ANTIBIOTIC RX F/U NEXT WEEK AT CLINIC FOR RECHECK AND BX REVIEW SCHEDULE VISIT WITH ONCOLOGY E&M Codes Discharge: Inpt >30 min spent/[id number]
[2017-04-14] MEDS ORDERED: IPRATROPIUM BROMIDE/ IN (16:14)
[2017-04-14] MEDS ORDERED: PROAIR HFA IN (16:15)
[2017-04-14] MEDS ORDERED: PREDNISONE20 MG PO (16:17)
[2017-04-14] MEDS ORDERED: ALBUTEROL HFA60 DOSE IN (16:17)
[2017-04-21] MEDS ORDERED: PROAIR HFA IN (10:55)
[2017-04-21] MEDS ORDERED: PREDNISONE20 MG PO (10:55)
[2017-04-22] MEDS ORDERED: HYCET1 ML PO (09:29)
== END 2017-04-03 13:30 | disposition home or self-care (01) | DRG 856 ==
LOC: ED SRH 21:15 → TRANS SRH 23:56 → ACUTE2 SRH 23:56 → TRANS SRH 23:56 → ACUTE2 SRH 03-31 00:35 → TRANS SRH 03-31 00:35 → ACUTE2 SRH 03-31 01:11 → TRANS SRH 03-31 01:11 → ACUTE2 SRH 03-31 01:11
PROVIDERS: ADMIT Neuromusculoskeletal Medicine, Sports Medicine
PROC: 07B13ZX Excision of Right Neck Lymphatic, Percutaneous Approach, Diagnostic (ICD-10-PCS; principal; 2017-04-01)
DX: T81.4XXA Infection following a procedure, initial encounter (principal); A40.1 Sepsis due to streptococcus, group B; L03.115 Cellulitis of right lower limb; I87.1 Compression of vein; E87.0 Hyperosmolality and hypernatremia; B44.9 Aspergillosis, unspecified; B95.1 Streptococcus, group B, as the cause of diseases classified elsewhere; D49.89 Neoplasm of unspecified behavior of other specified sites; T81.89XA Other complications of procedures, not elsewhere classified, initial encounter; J44.9 Chronic obstructive pulmonary disease, unspecified; R59.0 Localized enlarged lymph nodes; Z85.048 Personal history of other malignant neoplasm of rectum, rectosigmoid junction, and anus; Z93.3 Colostomy status; Z92.3 Personal history of irradiation; Z85.6 Personal history of leukemia; Z87.891 Personal history of nicotine dependence

== ENCOUNTER 2017-04-17 09:52 | Emergency (ER) | payer OTHER, MEDICARE ==
[~2017-04-17 09:52] MED LIST changes: +ALBUTEROL HFA60 DOSE IN; +IPRATROPIUM BROMIDE/ IN; +LEVOFLOXACIN500 MG PO
--- NOTE | 2017-04-17 12:36 | DIAGNOSTIC IMAGING REPORT ---
PROCEDURE: XR CHEST 1 VIEW INDICATION: SHORTNESS OF BREATH TECHNIQUE: Portable AP view 10:34 a.m. COMPARISON: Chest x-ray 04/12/2017 CT thorax 03/31/2017. FINDINGS: No change in the 2 right basilar nodules (aspergilloma on CT scan)). New left basilar density which may represent an additional nodule. Increasing moderate superior mediastinal adenopathy. Small retrocardiac infiltrate. Borderline cardiomegaly. Pulmonary vascularity is within normal limits. No suspicious osseous lesions. IMPRESSION: 1. Small retrocardiac infiltrate 2. Questionable new left basilar nodule. Recommend two-view chest x-ray. 3. Stable right basilar aspergillomas 4. Increasing superior mediastinal adenopathy. Consider lymphoma. 5. Results discussed with Dr. Rodarte
--- NOTE | 2017-04-17 13:33 | ED ORDER SUMMARY ---
..... Patient: REILLY PRESTON OrderSheet [facility] VisitID: [id number] [place] [address] 76y, F Registration Date/Time: 04/17/2017 ORDER SHEET Weight: 75.7 kg (stated) Allergies: No Known Drug Allergy GENERAL ORDERS: Chest 1V Urgent (10:04/17/2017 Izabella CROCKER) (Ack 10:09 Darin HORN Tech1) (10:29 DDean R.N.) Critical Power Install Technician (Continuous) (10:04/17/2017 Izabella CROCKER) (Ack 10:09 Darin Ellison1) (10:17 Carmen) Cardiac Panel Stat (10:04/17/2017 Izabella CROCKER) (Ack 10:09 Darin Ellison1) (10:23 DDean R.N.) BNP Urgent (10:04/17/2017 Izabella CROCKER) (Ack 10:09 Darin Ellison1) (10:23 DDean R.N.) D-Dimer Urgent (10:04/17/2017 Izabella CROCKER) (Ack 10:09 Darin Ellison1) (10:23 DDean R.N.) PCT (Procalcitonin) Urgent (10:04/17/2017 Izabella CROCKER) (Ack 10:09 Darin Ellison1) (10:23 DDean R.N.) Lactate, Serum Urgent (10:04/17/2017 Izabella CROCKER) (Ack 10:09 Darin Ellison1) (10:23 DDean R.N.) Oxygen (2 L/min) (NC) (10:04/17/2017 Izabella CROCKER) (Ack 10:09 Darin Ellison1) (10:17 Carmen) Pulse oximeter (10:04/17/2017 Izabella CROCKER) (Ack 10:09 Darin Casillas) (10:17 Carmen) EKG - ER Stat (10:04/17/2017 Izabella CROCKER) (Ack 10:09 Darin Ellison1) (10:17 Carmen) MEDICATION ORDERS: DuoNeb Neb Tx 1 unit dose (NOW) (10:04/17/2017 Izabella CROCKER) (10:23 DDean R.N.) Albuterol Neb Tx 2 unit doses (HHN) (10:04/17/2017 Izabella CROCKER) (10:24 DDean R.N.) IV FLUIDS: Solu-MEDROL IV 120 mg (NOW) (10:04/17/2017 Izabella CROCKER) (Cancelled: Other10:27 DDean R.N.) Solu-MEDROL IV 125 mg (NOW) (10:04/17/2017 DDean R.N. verbal order read back to Izabella CROCKER) (10:27 DDean R.N.) ORDER SHEET NOTES: [Electronically signed by Christen Cuellar R.N. (17:22 04/17/2017)] [Electronically signed by Goldy Rodarte MD (08:57 04/20/2017)] [Electronically locked/signed by Christen Cuellar R.N. (17:22 04/17/2017)]
--- NOTE | 2017-04-17 13:33 | ED CLINICAL REPORT ---
Clinical Report - Physicians/Mid Levels [facility] [address] [place] [address] 04/17/2017 9:53 [id number] Time Seen: 10:07. Arrived- By private vehicle. Historian- patient. HISTORY OF PRESENT ILLNESS Chief Complaint: DYSPNEA. This started about 5 days ago; SOB increasing for 5 days. She was just hospitalized and just finished her prednisone course. She has had aspergillosis for a long time. She has large pulmonary lymph nodes felt to be related to the aspergillosis. She was scheduled for an lymph node biopsy but for technical reasons that needed to be delayed. It is scheduled within the next week. and is still present. It was gradual in onset and has been constant and waxing/waning. The dyspnea is severe and is worsened by walking and exertion. The patient has had a cough, severe wheezing and dyspnea on exertion. No sputum production, fever, sweating episodes, chills or chest pain. No calf pain or foot swelling. Similar symptoms previously: Many times. Recent medical care: The patient was seen recently at this facility and hospitalized. ( Just finished prednisone and albuterol QID). REVIEW OF SYSTEMS No chills, fever, decreased vision, ear pain or sore throat. No chest pain, abdominal pain, black stools, bloody stools or diarrhea. No nausea, vomiting, joint pain, skin rash or difficulty with urination. The patient has had a cough and difficulty breathing. PAST HISTORY [place] Aspergilosis Problems: COPD - Chronic Obstructive Pulmonary Disease. GI Bleeding. Ureterolithiasis. Bowel Obstruction. Abcess left back near kidney. Leukemia. Rectal CA. Thyroid Disease. Additional Surgeries: Colectomy with colostomy Adenoidectomy. Appendectomy. Cholecystectomy. Hysterectomy. Right ankle surgery after fx. Tonsillectomy. Ulcer surgery. SOCIAL HISTORY Smoker- current status unknown (quit 2 mos). ADDITIONAL NOTES The nursing notes have been reviewed. PHYSICAL EXAM Vital Signs: 04/17/2017 13:45 BP: 181/81. HR: 82. RR: 18. O2 saturation: 91%. Pain level now: 0/10. 04/17/2017 13:12 BP: 168/69. HR: 81. RR: 22. O2 saturation: 93%. Pain level now: 01/29. 04/17/2017 12:23 BP: 157/58. HR: 80. RR: 22. O2 saturation: 92%. 04/17/2017 11:53 BP: 154/53. HR: 86. RR: 26. O2 saturation: 89%. Pain level now: 03/31. 04/17/2017 11:15 BP: 150/52. HR: 79. RR: 26. O2 saturation: 90%. Pain level now: 03/31. 04/17/2017 10:50 BP: 165/53. HR: 83. RR: 28. O2 saturation: 92%. Pain level now: 03/31. 04/17/2017 10:20 BP: 161/68. HR: 87. RR: 30. O2 saturation: 92%. Pain level now: 03/31. 04/17/2017 10:00 BP: 175/78. HR: 86. RR: 28. O2 saturation: 93%. Temp: 97.8 F. Pain level now: 03/31. Appearance: Patient in severe distress. Eyes: Pupils equal, round and reactive to light. Eyes normal inspection. ENT: Pharynx normal. CVS: Heart sounds normal. Respiratory: Respiratory distress. Accessory muscle use. Prolonged expirations. Moderately decreased air movement bilaterally. Severe bilateral wheezes diffusely. Abdomen: Soft and nontender. Skin: Skin warm. Normal skin color. No rash. Extremities: Extremities exhibit normal ROM. No lower extremity edema. Neuro: No alteration in mental status. LABS, X-RAYS, AND EKG EKG: Normal sinus rhythm. Rate: 81. RBBB. Left axis deviation. T wave inversion in lead V1. Chest X-ray: (PROCEDURE: XR CHEST 1 VIEW INDICATION: SHORTNESS OF BREATH TECHNIQUE: Portable AP view 10:34 a.m. COMPARISON: Chest x-ray 04/12/2017 CT thorax 03/31/2017. FINDINGS: No change in the 2 right basilar nodules (aspergilloma on CT scan)). New left basilar density which may represent an additional nodule. Increasing moderate superior mediastinal adenopathy. Small retrocardiac infiltrate. Borderline cardiomegaly. Pulmonary vascularity is within normal limits. No suspicious osseous lesions. IMPRESSION: 1. Small retrocardiac infiltrate 2. Questionable new left basilar nodule. Recommend two-view chest x-ray. 3. Stable right basilar aspergillomas 4. Increasing superior mediastinal adenopathy. Consider lymphoma. 5. Results discussed with Dr. Rodarte Electronically Final signed by:Yuval Moore MD 04/17/2017 12:35:45 PM). The X-rays were interpreted by the radiologist and contemporaneously by me and discussed with the radiologist. Laboratory Tests: CBC w Diff: (CALEB: 04/17/2017 10:02) ( MsgRcvd 04/17/2017 10:25) Final results Test Result Flag Units (Reference) WHITE BLOOD COUNT 16.6 H K/uL (4.5-11.5) RED BLOOD COUNT 4.44 M/uL (4.00-5.20) HEMOGLOBIN 11.5 L gm/dL (12.0-16.0) HEMATOCRIT 36.9 % (36.0-46.0) MEAN CELL VOLUME 83 fL (80-100) MEAN CORPUSCULAR HGB 26 pg (26-34) MEAN CORPUSCULAR HGB CONC 31 g/dL (31-37) RED CELL DISTRIBUTION WIDTH 19.8 H % (11.6-14.8) PLATELET COUNT 445 H K/uL (150-400) NEUTROPHIL % 92.9 H % (50-75) LYMPH % 3.6 L % (25-40) MONO % 2.7 L % (3-14) EOSINOPHIL % 0.2 % (0-4) BASOPHIL % 0.6 % (0-2) [id number]: (CALEB: 04/17/2017 10:02) ( MsgRcvd 04/17/2017 10:40) Final results Test Result Flag Units (Reference) D-DIMER QUANTITATIVE 1.72 H ug/mLFEU (0.27-0.52) The primary value of this quantitative assay relates toits negative predictive value (i.e. exclusion) of pulmonaryembolism/deep vein thrombosis/DIC.Elevated levels of d-dimer may also occur with:, age, cancer, inflammation, liver disease,post-op, infection, hematoma, coronary disease, peripheralarteriopathy, bleeding disorders and thrombolytic treatment.Results should be correlated with other clinical andradiological data.Testing Methodology: Latex Immunoassay BNP: (CALEB: 04/17/2017 10:02) ( [facility] 04/17/2017 10:53) Final results Test Result Flag Units (Reference) B-TYPE NATRIURETIC PEPTIDE 224 H pg/ml (5-100) Lactate, Serum: (CALEB: 04/17/2017 10:02) ( [facility] 04/17/2017 10:46) Final results Test Result Flag Units (Reference) LACTIC ACID 1.7 mmol/L (0.4-2.0) [id number]: (CALEB: 04/17/2017 10:02) ( [facility] 04/17/2017 10:55) Final results Test Result Flag Units (Reference) PROCALCITONIN <0.5 ng/mL (0-0.5) PCT Concentration: Interpretation : Risk/option for action PCT <=0.5 ng/mL : Systemic : Low risk forinfection(sepsis): progression to severeis not likely. : systemic infection.Local bacterial : CAUTION-PCT levelsinfection is : below 0.5 ng/mL do notpossible. : exclude an infection,because localizedinfections (withoutsystemic signs) may beassociated with suchlow levels. If PCT ismeasured very earlyafter a bacterialchallenge (usually <6hours), these valuesmay still be low. Inthis case PCT shouldbe re-assessed 6-24hours later. PCT >0.5 and : Systemic infection: Moderate risk for<= 2 ng/mL : (sepsis) is : progression to severepossible, but : systemic infection.other conditions : The patient should beare known to : closely monitoredelevate PCT. : both clinically andby re-assessing PCTwithin 6-24 hours. PCT > 2 ng/mL : Systemic infection: High risk for(sepsis) is likely: progression to severeunless other : systemic infection.causes are known. : PCT >= 10 ng/mL : Important systemic: High likelihood ofinflammatory : severe sepsis orresponse, almost : septic shock.exclusively due to:severe bacterial :sepsis or septic :shock. : CHEM 13 PANEL: (CALEB: 04/17/2017 10:02) ( MsgRcvd 04/17/2017 10:45) Final results Test Result Flag Units (Reference) GLUCOSE 133 H mg/dL (70-110) BUN 23 H mg/dL (7-18) CREATININE 1.2 mg/dL (0.6-1.3) Estimated GFR 46.55 mL/min Estimated GFR- 56.42 mL/min Note: Persistent reduction over 3 months in eGFR<60 mL/min/1.73 m2 defines CKD. Patients with eGFR values>=60 mL/min/1.73 m2 may also have CKD if evidence ofpersistent proteinuria. Additional information may be foundat www.kidney.org. SODIUM 144 mmol/L (136-145) POTASSIUM 4.6 mmol/L (3.5-5.1) CHLORIDE 105 mmol/L (98-107) CARBON DIOXIDE 37 H mmol/L (21-32) CALCIUM 9.6 mg/dL (8.5-10.1) TOTAL PROTEIN 7.3 g/dL (6.4-8.2) ALBUMIN 2.6 L g/dL (3.3-5.0) BILIRUBIN, TOTAL 0.2 mg/dL (0.0-1.0) ALKALINE PHOSPHATASE 97 U/L (46-116) AST (SGOT) 26 U/L (15-37) ALT (SGPT) 32 U/L (12-78) CPK 64 U/L (24-260) MAGNESIUM 1.9 mg/dL (1.8-2.4) TROPONIN I <0.05 ng/mL (0.00-1.5) TROPONIN REFERENCE RANGE:<0.1 NEGATIVE0.1-1.5 INDETERMINANT>1.5 POSITIVE . PROGRESS AND PROCEDURES Course of Care: 10:09 04/17/17. Quite tight. The patient is given Solu-Medrol 120 mg IV, 1 DuoNeb handheld nebulizer followed by 2 albuterol hand-held nebulizer treatments. Initially the patient's dyspnea was so severe I thought she would certainly need to be admitted to the hospital. The 3 hand-held nebulizer treatments plus Solu-Medrol work remarkably well. She needs to have a pulmonary lymph node biopsy. This is already scheduled for next week. The patient wishes to go home. This is reasonable and safe given her response to treatment. Her pulmonary adenopathy is concerning. The radiologist is concerned that it could be a lymphoma. she does not appear to have a pneumonia, pneumothorax, an acute coronary syndrome, or a pulmonary embolism. Disposition: Discharged. CLINICAL IMPRESSION Acute exacerbation of COPD. HISTORY OF ASPERGILOSIS AND ASPERGILOMA. INSTRUCTIONS (YOUR LUNG LYMPH NODES ARE BIGGER IMMEDIATE RECHECK WORSE INCREASE ALBUTEROL TO EVERY 4 HOURS I WILL RESTART PREDNISONE). Prescription Medications: Prednisone 20 mg: take 3 orally every day for 5 days. Dispense fifteen (15). No refills. Follow-up: Follow up with your doctor in five days. Understanding of the discharge instructions verbalized by patient. (Electronically signed by Goldy Rodarte MD 04/20/2017 8:57)
--- NOTE | 2017-04-17 13:33 | ED NURSING NOTES ---
Clinical Report - Nurses [facility] [address] [place] [address] 04/17/2017 9:53 Patient: REILLY PRESTON TRIAGE Triage time 1000. Acuity: LEVEL 3. Chief Complaint: SHORTNESS OF BREATH and (pt in c/o SOB with moist cough. Cough producing thick whitish, yellow sputum). --10:16 Christen Cuellar R.N. 10:00 04/17/17. BP: 175/78. HR: 86. RR: 28. O2 saturation: 93% on nasal cannula at 2 liters/minute. Temp: 97.8 F. Pain level now: 03/31. --10:16 Christen Cuellar R.N. Weight: 75.7 kg stated. Height/Length: 68 inches Per Patient. BMI: 25.4. --10:12 Christen Cuellar R.N. Medications Albutreral inhaler (PRN). Benazepril-Hydrochlorothiazide Oral (Tablet 10-12.5 mg) 1 tablet, Day. L-thyroxine 125mcg one tab day. Oxygen 2l/nc. --10:14 Christen Cuellar R.N. Allergies No Known Drug Allergy. --10:14 Christen Cuellar R.N. History Arrived by private vehicle. Historian: patient. Accompanied by family. Primary physician (ishmael). Onset. (2 days). She has had fever, a cough, wheezing, chest pain and back pain. --10:16 Christen Cuellar R.N. PROBLEMS: Wound Dehiscence. Cellulitis. COPD - Chronic Obstructive Pulmonary Disease. GI Bleeding. Ureterolithiasis. Bowel Obstruction. Abcess left back near kidney. Leukemia. Rectal CA. Thyroid Disease. --10:16 Christen Cuellar R.N. ADDITIONAL SURGERIES: Adenoidectomy. Appendectomy. Cholecystectomy. Hysterectomy. Muscle Graft. Ostomy. Right ankle surgery after fx. Tonsillectomy. Ulcer surgery. --10:16 Christen Cuellar R.N. Interventions ID band on patient. To treatment room. --10:16 Christen Cuellar R.N. PHYSICAL ASSESSMENT 10:00. To room via wheelchair. Patient gowned. GENERAL / NEURO / PSYCH: Alert. Oriented X 4. Appears anxious. RESPIRATORY: Moderate respiratory distress. The patient can speak one word at a time. Cough. Chest wall tenderness. Wheezing present. CVS: Capillary refill less than 2 seconds. GI / : Abdomen soft. ( has ostomy bag). SKIN: Skin is warm and dry. ( no pedal edema noted). --10:17 Christen Cuellar R.N. NURSING PROGRESS NOTES 10:00. Oxygen administered. monitoring tech placed on patient. Patient gowned. Head of bed elevated. Reassurance given. Patient identifiers checked. Call light placed in reach. Side rails up. Bed placed in lowest position. Patient ready for evaluation- chart flagged. --10:09 Christen Cuellar R.N. 10:10 04/17/2017 Site #1 started via IV in the left forearm with an 20g angiocath, with aseptic technique and good blood return; one attempt. Blood drawn: rainbow set. Labeled in the presence of the patient and sent to the lab (done by TANNER Sunshine). --10:10 Christen Cuellar R.N. 10:07. ( RT here to do albuterol tx). --10:11 Christen Cuellar R.N. 10:18. EKG time: (1018). EKG was ordered, performed by a tech and shown to the ED physician. done by sales and service technician. --10:21 Christen Cuellar R.N. 10:20 04/17/17. BP: 161/68. HR: 87. RR: 30. O2 saturation: 92% on nasal cannula at 2 liters/minute. Temp: deferred. Pain level now: 03/31. --10:23 Christen Cuellar R.N. 10:08 04/17/2017 Duoneb (Ipratropium-Albuterol) Neb TX Nebulizer 1 unit dose given. Given by the respiratory therapist. --10:23 Christen Cuellar R.N. 10:09 04/17/2017 Albuterol Neb TX Nebulizer 2 unit dose given. Given by the respiratory therapist. Allergies verified and confirmed 5 rights. --10:24 Christen Cuellar R.N. 10:27 04/17/2017 SOLU-MEDROL (MethylPREDNISolone Sodium Succ) IVP 125 mg given over 1 minute(s) via site #1. IV patency established. IV site checked: no pain, redness, or swelling. IV flushed thoroughly pre- and post-medication administration. IVP given by RN. --10:27 Christen Cuellar R.N. 10:29 04/17/17. Portable chest x-ray ordered, performed and shown to the ED physician. --10:29 Christen Cuellar R.N. 10:50 04/17/17. BP: 165/53. HR: 83. RR: 28. O2 saturation: 92%. Temp: deferred. Pain level now: 5/10. Additional comments: pt states breathing is " a little better" after treatments, but comp of continued chest and back pain . --10:53 Christen Cuellar R.N. 11:00. Patient ID band checked for patient name and birthdate. Clean catch urine collected with return of yellow-colored clear urine; sample sent to lab. Specimen labeled in the presence of the patient. ( Pt up to [facility], ginny well. UA sent to lab). --11:16 Christen Cuellar R.N. 11:15 04/17/17. BP: 150/52. HR: 79. RR: 26. O2 saturation: 90% on nasal cannula at 3 liters/minute. Temp: deferred. Pain level now: 5/10. Additional comments: pt sleeping on side. --11:17 Christen Cuellar R.N. 11:53 04/17/17. BP: 154/53. HR: 86. RR: 26. O2 saturation: 89% on nasal cannula at 3 liters/minute. Temp: deferred. Pain level now: 5/10. Additional comments: still has moist cough. --11:54 Christen Cuellar R.N. 12:23 04/17/17. BP: 157/58. HR: 80. RR: 22. O2 saturation: 92% on nasal cannula at 3 liters/minute. Temp: deferred. Pain level now unable to obtain. Additional comments: Pt sleeping . --12:24 Christen Cuellar R.N. 13:12 04/17/17. BP: 168/69. HR: 81. RR: 22. O2 saturation: 93% on nasal cannula at 3 liters/minute. Temp: deferred. Pain level now: 310. --13:18 Christen Cuellar R.N. 13:25. ( Pt states she doesn't want to be admitted. ERMD notified, in talking with pt at length regarding findings and follow up needs). --17:20 Christen Cuellar R.N. 13:35 04/17/2017 Site #1 removed upon discharge. Pressure dressing applied. --17:21 Christen Cuellar R.N. DISPOSITION / DISCHARGE 13:45. Condition at departure: improved and stable. No learning barriers present. Discharge instructions provided and reviewed with the patient and spouse. Reviewed medication(s) (prednisone). Patient and spouse verbalized understanding. Written instructions provided in [employer]. The patient was discharged home and accompanied by spouse. She left the Emergency Department in a wheelchair and via private vehicle. Spouse driving. --17:18 Christen Cuellar R.N. 13:45 04/17/17. BP: 181/81. HR: 82. RR: 18. O2 saturation: 91% on nasal cannula at 3 liters/minute. Temp: deferred. Pain level now: 0/10. --17:18 Christen Cuellar R.N. Locked/Released at 04/17/2017 17:22 by Christen Cuellar R.N.
--- NOTE | 2017-04-17 13:33 | ED ORDER SUMMARY ---
..... Patient: REILLY PRESTON OrderSheet [facility] VisitID: [id number] [place] [address] 76y, F Registration Date/Time: 04/17/2017 ORDER SHEET Weight: 75.7 kg (stated) Allergies: No Known Drug Allergy GENERAL ORDERS: Chest 1V Urgent (10:04/17/2017 Izabella CROCKER) (Ack 10:09 Darin HORN Tech1) (10:29 DDean R.N.) Factory Assembler (Continuous) (10:04/17/2017 Izabella CROCKER) (Ack 10:09 Darin Ellison1) (10:17 Carmen) Cardiac Panel Stat (10:04/17/2017 Izabella CROCKER) (Ack 10:09 Darin Ellison1) (10:23 DDean R.N.) BNP Urgent (10:04/17/2017 Izabella CROCKER) (Ack 10:09 Darin Ellison1) (10:23 DDean R.N.) D-Dimer Urgent (10:04/17/2017 Izabella CROCKER) (Ack 10:09 Darin Ellison1) (10:23 DDean R.N.) PCT (Procalcitonin) Urgent (10:04/17/2017 Izabella CROCKER) (Ack 10:09 Darin Ellison1) (10:23 DDean R.N.) Lactate, Serum Urgent (10:04/17/2017 Izabella CROCKER) (Ack 10:09 Darin Ellison1) (10:23 DDean R.N.) Oxygen (2 L/min) (NC) (10:04/17/2017 Izabella CROCKER) (Ack 10:09 Darin Ellison1) (10:17 Carmen) Pulse oximeter (10:04/17/2017 Izabella CROCKER) (Ack 10:09 Darin Casillas) (10:17 Carmen) EKG - ER Stat (10:04/17/2017 Izabella CROCKER) (Ack 10:09 Darin Ellison1) (10:17 Carmen) MEDICATION ORDERS: DuoNeb Neb Tx 1 unit dose (NOW) (10:04/17/2017 Izabella CROCKER) (10:23 DDean R.N.) Albuterol Neb Tx 2 unit doses (HHN) (10:04/17/2017 Izabella CROCKER) (10:24 DDean R.N.) IV FLUIDS: Solu-MEDROL IV 120 mg (NOW) (10:04/17/2017 Izabella CROCKER) (Cancelled: Other10:27 DDean R.N.) Solu-MEDROL IV 125 mg (NOW) (10:04/17/2017 DDean R.N. verbal order read back to Izabella CROCKER) (10:27 DDean R.N.) ORDER SHEET NOTES: [Electronically signed by Christen Cuellar R.N. (17:22 04/17/2017)] [Electronically signed by Goldy Rodarte MD (08:57 04/20/2017)] [Electronically locked/signed by Christen Cuellar R.N. (17:22 04/17/2017)]
--- NOTE | 2017-04-20 08:58 | ED MED RECONCILIATION SUMMARY ---
Patient: REILLY PRESTON Medication Reconciliation Report [facility] VisitID: [id number] [place] [address] 76y, F Registration Date/Time: 04/17/2017 Weight: 75.7 kg Height/Length: 68 in. BMI: 25.4 ALLERGIES: No Known Drug Allergy The patient's Home Medications are listed below: THE FOLLOWING MEDICATIONS NEED TO BE RECONCILED: Albutreral inhaler, PRN Benazepril-Hydrochlorothiazide Oral (10-12.5 mg) 1 tablet, Day L-thyroxine 125mcg one tab day Oxygen 2l/nc The source(s) of the original Home Medication information: Not obtained. The following Medications were given to the patient in the Emergency Department: Duoneb [Neb Tx] Neb TX 1 unit dose, administered: 04/17/2017 10:08:00 AM Albuterol [Neb Tx] Neb TX 2 unit dose, administered: 04/17/2017 10:09:00 AM SOLU-MEDROL [IVP] IVP 125 mg, administered: 04/17/2017 10:27:00 AM The following Medications were prescribed to the patient: Prednisone 20 mg: take 3 orally every day for 5 days. Dispense fifteen (15). No refills. -- Goldy Rodarte MD
--- NOTE | 2017-04-20 08:58 | ED MED RECONCILIATION SUMMARY ---
Patient: REILLY PRESTON Medication Reconciliation Report [facility] VisitID: [id number] [place] [address] 76y, F Registration Date/Time: 04/17/2017 Weight: 75.7 kg Height/Length: 68 in. BMI: 25.4 ALLERGIES: No Known Drug Allergy The patient's Home Medications are listed below: THE FOLLOWING MEDICATIONS NEED TO BE RECONCILED: Albutreral inhaler, PRN Benazepril-Hydrochlorothiazide Oral (10-12.5 mg) 1 tablet, Day L-thyroxine 125mcg one tab day Oxygen 2l/nc The source(s) of the original Home Medication information: Not obtained. The following Medications were given to the patient in the Emergency Department: Duoneb [Neb Tx] Neb TX 1 unit dose, administered: 04/17/2017 10:08:00 AM Albuterol [Neb Tx] Neb TX 2 unit dose, administered: 04/17/2017 10:09:00 AM SOLU-MEDROL [IVP] IVP 125 mg, administered: 04/17/2017 10:27:00 AM The following Medications were prescribed to the patient: Prednisone 20 mg: take 3 orally every day for 5 days. Dispense fifteen (15). No refills. -- Goldy Rodarte MD
--- NOTE | 2017-04-20 08:58 | ED MAR SUMMARY ---
..... Medication Administration Record [facility] [address] [place] [address] Patient: REILLY PRESTON Visit ID: [id number] 76y, F Weight: 75.7 kg Height/Length: 68 in BMI: 25.4 ALLERGIES: No Known Drug Allergy Given 10:04/17/2017 Christen Cuellar R.N. Medication Administered: DUONEB [NEB TX] (IPRATROPIUM-ALBUTEROL), Dose: 1 unit dose Nebulizer Neb TX. Medication Ordered: DuoNeb Neb Tx 1 unit dose (NOW). Given 10:04/17/2017 Christen Cuellar R.N. Medication Administered: ALBUTEROL [NEB TX], Dose: 2 unit dose Nebulizer Neb TX. Medication Ordered: Albuterol Neb Tx 2 unit doses (HHN). Given 10:04/17/2017 Christen Cuellar R.N. Medication Administered: SOLU-MEDROL [IVP] (METHYLPREDNISOLONE SODIUM SUCC), Dose: 125 mg IVP over 1 minute(s), Site: #1 left forearm. Medication Ordered: Solu-MEDROL IV 125 mg (NOW).
--- NOTE | 2017-04-20 08:58 | ED MAR SUMMARY ---
..... Medication Administration Record [facility] [address] [place] [address] Patient: REILLY PRESTON Visit ID: [id number] 76y, F Weight: 75.7 kg Height/Length: 68 in BMI: 25.4 ALLERGIES: No Known Drug Allergy Given 10:04/17/2017 Christen Cuellar R.N. Medication Administered: DUONEB [NEB TX] (IPRATROPIUM-ALBUTEROL), Dose: 1 unit dose Nebulizer Neb TX. Medication Ordered: DuoNeb Neb Tx 1 unit dose (NOW). Given 10:04/17/2017 Christen Cuellar R.N. Medication Administered: ALBUTEROL [NEB TX], Dose: 2 unit dose Nebulizer Neb TX. Medication Ordered: Albuterol Neb Tx 2 unit doses (HHN). Given 10:04/17/2017 Christen Cuellar R.N. Medication Administered: SOLU-MEDROL [IVP] (METHYLPREDNISOLONE SODIUM SUCC), Dose: 125 mg IVP over 1 minute(s), Site: #1 left forearm. Medication Ordered: Solu-MEDROL IV 125 mg (NOW).
--- NOTE | 2017-04-20 08:58 | ED DISCHARGE INSTRUCTIONS ---
Patient: REILLY PRESTON General Instructions [facility] VisitID: [id number] [place] [address] 76y, F Registration Date/Time: 04/17/2017 Acute exacerbation of COPD. HISTORY OF ASPERGILOSIS AND ASPERGILOMA. INSTRUCTIONS (YOUR LUNG LYMPH NODES ARE BIGGER IMMEDIATE RECHECK WORSE INCREASE ALBUTEROL TO EVERY 4 HOURS I WILL RESTART PREDNISONE). Prescription Medications: Prednisone 20 mg: take 3 orally every day for 5 days. Dispense fifteen (15). No refills. Follow-up: Follow up with your doctor in five days. Understanding of the discharge instructions verbalized by patient. ADDITIONAL INFORMATION COPD Flare Both emphysema and chronic bronchitis are forms of chronic obstructive pulmonary disease (COPD). It is most often caused by many years of smoking tobacco. Many things can make your lung disease suddenly get worse. These causes include the common cold, pneumonia, acute bronchitis, missing doses of your regular breathing medicines, or being around smoke, dust, or other air pollutants. A COPD flare may last 7 to 14 days. Your doctor may prescribe medicineto relax your airways and prevent wheezing. Your doctor may also prescribe antibiotics if he or she thinks you havea bacterial infection. Prednisone can helpease inflammation in a severe attack. Home care Here are things you can do at home: Drink lots of water or other fluids (at least 10 glasses a day) during an attack. This will loosen lung secretions and make it easier to breathe. If you have heart or kidney disease, check with your doctor before you drink extra amounts of fluids. Take prescribed medicine exactly at the times advised. If you have a hand-held inhaler or aerosol breathing medicine, don't use it more than once every 4 hours, unless your doctor tells you to. If you were givenan antibiotic or prednisone, take all of the medicine even if you are feeling better after a few days. Don't smoke. Avoid being aroundthe smoke of others. If you were given an inhaler, use it exactly as directed. If you need to use it more often than prescribed, your condition may be getting worse. Call your doctor. Follow-up care Follow up with your health care provider.If you are 65 or older or have chronic asthma or COPD, you should get a single dose of the pneumococcal vaccine and aflu shot each year. You may need a second dose of the pneumococcal vaccine if you had the first dose at a younger age. Your health care provider will let you know if you need a second dose. For all other people, the usual dose for the pneumococcal vaccine is 1 or 2 shots. Yourprovider can discuss this with you. When to seek medical care Get prompt medical attention ifany of these occur: Increased wheezing or shortness of breath Need to use your inhalers more often than usual without relief Fever of 100.4F(38C) or higher, or as directed by your health care provider Coughing up lots of dark-colored or bloody sputum (mucus) Chest pain with each breath You do not start to improve within 24 hours You have been given the following additional information: COPD Flare (Electronically signed by Goldy Rodarte MD 04/20/2017 8:57)
[2017-04-21] MEDS ORDERED: PREDNISONE20 MG PO ×2 (10:55)
[2017-04-21] MEDS ORDERED: PROAIR HFA IN ×2 (10:55)
== END 2017-04-17 13:45 | disposition home or self-care (01) ==
LOC: ED SRH 09:52
DX: J44.1 Chronic obstructive pulmonary disease with (acute) exacerbation (principal); Z87.09 Personal history of other diseases of the respiratory system; Z86.19 Personal history of other infectious and parasitic diseases; E07.9 Disorder of thyroid, unspecified; Z79.899 Other long term (current) drug therapy
CPT/HCPCS: 90074; 90100; 90616; 91320; 91556; 92031; 92610; 92720; 93004; 95059

== ENCOUNTER 2017-04-22 07:04 | Day surgery (SDC) | payer OTHER, MEDICARE ==
[~2017-04-22] VITALS: Ht 165.1 cm; Wt 75.6 kg
--- NOTE | 2017-04-22 08:05 | NUR ---
PREOP INSTRUCTIONS GIVEN TO PATIENT. QUESTIONS ANSWERED. PATIENT VERBALIZES UNDERSTANDING. CONSENT CONFIRMED. SIDE MARKED BY RN WITH PATIENT INSTRUCTION. DUONEB GIVEN. KB
[2017-04-22] MEDS ORDERED: HYCET1 ML PO ×2 (09:29)
--- NOTE | 2017-04-22 09:31 | Provider's Discharge Care Plan ---
Problem, Goal, Plan Problem List 1. S/P RIGHT CERVICAL LYMPH NODE BIOPSY Goals: Diagnostic testing, Therapeutic intervention Instructions: Follow up as directed, Take meds as directed
--- NOTE | 2017-04-22 09:31 | Provider's Discharge Care Plan ---
Problem, Goal, Plan Problem List 1. S/P RIGHT CERVICAL LYMPH NODE BIOPSY Goals: Diagnostic testing, Therapeutic intervention Instructions: Follow up as directed, Take meds as directed
--- NOTE | 2017-04-22 09:34 | NUR ---
PT RECEIVED TO PACU AWAKE AND COMFORTABLE. DENIES PAIN, DENIES NAUSEA. WARM BLANKETS FOR COMFORT. PT RESTING ON HER LEFT SIDE. VSS.
--- NOTE | 2017-04-22 09:39 | Operative Report ---
Operative Report Date of Surgery: 04/22/17 Preoperate Diagnosis: right cervical lymphadenopathy Postoperative Diagnosis: right cervical lymphadenopathy Surgeon: Theo Chew MD [employer] Surgeon: none Procedure Performed: Right deep cervical lymph node excisional biopsy Anesthesia: TIVA/local Indications: 76-year-old female who recently underwent fine-needle aspiration of a supraclavicular lymph node. Pathology reveals non-hemopoietic malignancy all pattern. She is scheduled for the tissue biopsy. FINDINGS: Deep cervical lymph node located inferior and posterior aspect of the sternocleidomastoid located be low but is not and part of matted lymphadenopathy , superficial to the carotid sheath. Lymph node specimen measuring 3.5 cm x 1.5 cm x 1 cm. Surgical Technique: 76-year-old female brought to the operating room. Placed in the dorsal supine position. Patient was administered TIVA by anesthesia. After proper anesthesia , taken to the patient's head was turned slightly to the left. The right side of her neck was prepped using Betadine and draped in a sterile fashion. The site previously identified in preop holding area was once again identified. The site was infiltrated using local anesthetic, 1% Xylocaine with epinephrine and 0.25% Marcaine. After local anesthetic to take effect, a transverse incision made in a skin crease and carried down through the skin, subcutaneous tissue. Hemostasis achieved using electrocautery. The platysma identified and divided using electrocautery. Using a combination of blunt dissection and electrocautery were able to dissect down onto the lymph node itself, being careful to avoid injury to the surrounding veins to include the external jugular. Once the lymph node was identified using gentle blunt dissection and sharp dissection, we were able to dissect the lymph node free from its rounded and matted neighboring lymph nodes. Lymph node was sent to pathology. The wound was irrigated. Hemostasis assured the skin was approximated using running 4-0 silk dermal Polysorb. Patient tolerated procedure well. She was transferred to the recovery room in stable condition. There were no intraoperative or anesthetic complications. CONDITION: Stable to postoperative anesthesia recovery room COMPLICATIONS: None ESTIMATED BLOOD LOSS: None FLUIDS:: 400 cc lactated Ringer's DRAINS/PACKING: None SPECIMEN: Posterior cervical lymph node biopsy
--- NOTE | 2017-04-22 09:52 | NUR ---
PT REPOSITIONED FOR COMFORT. PT DEEP BREATHES AND COUGHS WITH COACHING. PT REPORTS THAT SHE IS "ALWAYS WHEEZING" AND DOES NOT CURRENTLY FEEL ANY UNUSUAL RESPIRATORY DISTRESS. O2 SATS 86-92% ON NC AT 2.5 L/MIN. VSS.
--- NOTE | 2017-04-22 10:36 | NUR ---
PATIENT RETURNED TO THE FLOOR AWAKE AND TALKING. VS STABLE. SATS 91% ON 2.5L O2 PER NASAL CANULA. SITTING ON EDGE OF BED,DRINKING COFFEE. REFUSED FOOD. DENIES PAIN. DISCHARGE INSTRUCTIONS GIVEN TO PATIENT. QUESTIONS ANSWERED. PATIENT VERBALIZES UNDERSTANDING. WILL DISCHARGE PATIENT HOME WITH HER . SABRINA
[2017-04-22 12:23] VITALS: BP 146/57
== END 2017-04-22 11:00 | disposition home or self-care (01) ==
LOC: OR SRH 07:04 → SCU SRH 07:05 → OR SRH 09:00
PROVIDERS: Specialist
PROC: 07B20ZX Excision of Left Neck Lymphatic, Open Approach, Diagnostic (ICD-10-PCS; principal; 2017-04-22 09:00)
DX: C7B.8 Other secondary neuroendocrine tumors (principal); Z85.048 Personal history of other malignant neoplasm of rectum, rectosigmoid junction, and anus; J44.9 Chronic obstructive pulmonary disease, unspecified; Z72.0 Tobacco use; I10 Essential (primary) hypertension
CPT/HCPCS: 29229; 29240; 50004; 60001; 80182; 80212; 84038

== ENCOUNTER 2017-05-06 08:27 | Outpatient (CLI) | payer OTHER, MEDICARE ==
--- NOTE | 2017-05-06 10:46 | DIAGNOSTIC IMAGING REPORT ---
PROCEDURE: CT HEAD WITHOUT CONTRAST INDICATION: STAGE SMALL CELL LUNG CA TECHNIQUE: Axial CT images were acquired through the head. Coronal and sagittal reformations were created. COMPARISON: None. FINDINGS: No intracranial hemorrhage or extraaxial fluid collections. Ventricles are normal in size, shape and position. There is no mass, mass effect or midline shift. There is some mild periventricular small-vessel ischemic disease in the white matter. There is no edema. The calvarium is intact. The paranasal sinuses and mastoid air cells are normally aerated. The extracranial soft tissues and orbits are normal. IMPRESSION: 1. No CT evidence of acute intracranial process. 2. Periventricular small-vessel ischemic disease. All CT scans at this facility use dose modulation, iterative reconstruction, and/or weight-based dosing when appropriate to reduce radiation dose to as low as reasonably achievable.
--- NOTE | 2017-05-06 13:53 | DIAGNOSTIC IMAGING REPORT ---
PROCEDURE: XR CHEST 1 VIEW INDICATION: PICC placement for infusion TECHNIQUE: Single view chest. 1232 hours COMPARISON: 04/17/2017 FINDINGS: The heart is enlarged. The mediastinum is widened diffusely. There is interval placement of a new left-sided PICC line. The tip is in the distal SVC and directed laterally. There is 3.3 cm lung mass in the right mid lung. Nodular densities seen in the left upper lobe laterally. Interstitial markings are diffusely coarse. Probable small right pleural effusion, stable. No pneumothorax. Intact osseous structures. IMPRESSION: 1. New left-sided PICC line with the tip in the distal SVC directed laterally. Discussed with Diamond of the PICC line team. 2. Cardiomegaly and wide mediastinum (adenopathy), stable. 3. Dominant right mid lung mass and parenchymal disease in the left upper lobe laterally, grossly stable.
--- NOTE | 2017-05-06 14:47 | DIAGNOSTIC IMAGING REPORT ---
PROCEDURE: CT THORAX ABD PELVIS W/O CONT INDICATION: STAGE SMALL CELL LUNG CA TECHNIQUE: Axial CT images were obtained of the thorax, abdomen, and pelvis with sagittal and coronal reformations. No contrast was given for GFR of 21. COMPARISON: 03/31/2017, 04/21/2016 FINDINGS: THORAX: Suboptimal given lack of IV contrast. Partially imaged bulky supraclavicular adenopathy, right greater than left. Extensive bilateral anterior and middle mediastinal adenopathy, bulky bilateral hilar adenopathy, left more extensive than right. Subcarinal adenopathy. Nodular pericardial thickening along the left superolateral pericardium, new since the prior study. Small pericardial effusion, stable. Normal sized heart. Subdermal midline chest nodule measuring 2.2 cm. Small left effusion, new. Minor left base atelectasis. Focal tree in bud nodularity laterally in the left upper lobe, unchanged. 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 Patchy tree in bud nodularity right posterior lung base, stable. Mild upper lobe emphysematous change. Chronic fracture right lateral sixth rib arc. ABDOMEN: Ill-defined 15 mm subcapsular hypodensity lateral right lobe of the liver (series 3 image 59). 13 mm Ill-defined hypodensity in the ventral caudate lobe. A new 12 mm nodule in the caudal splenic hilum. Epigastric rectus diastases status post remote herniorrhaphy with displaced mesh and herniated liver. Surgically absent gallbladder. Low density right adrenal nodularity, stable compared to 2016. Minimal left adrenal nodularity, also stable. Chronic severe left hydronephrosis. Normal right kidney. Interval placement of left mid abdominal colostomy with distal descending colon resection. Defunctionalized sigmoid and rectum remains. There has also been development of a wide necked, small and large bowel containing [id number] ventral abdominal hernia. There is anterior peritoneal wall mesh and a small stable seroma in the upper abdominal region. Small lymph nodes are present in the portacaval, anterior periaortic region. No bulky adenopathy. Moderate atherosclerosis of an irregular abdominal aorta normal right kidney, pancreas, and spleen. PELVIS: Surgically absent uterus. Normal pelvic vessels and urinary bladder. Normal-caliber pelvic bowel loops. No adenopathy or mass. Diffuse joint space loss, sclerosis, and spurring in the right femoral acetabular joint. Demineralized structures. Diffuse disc space loss throughout the lumbar spine. No suspicious osseous lesions. IMPRESSION: 1. Extensive mediastinal, supraclavicular, hilar adenopathy is suboptimally evaluated given lack of IV contrast. Grossly stable compared to the most recent prior CT. 2. Tree in bud parenchymal nodularity left lateral upper lobe and right posterior lung base, stable. 3. New left pleural effusion. 4. New nodular thickening of the pericardium suspicious for metastatic disease. 5. Development of new nodule, probably lymph node in the caudal splenic hilum since the most recent prior study (03/31/2017). 6. A partially evaluated hypodensities in the caudate and right lobe of the liver, likely metastatic disease. 7. Interval development of large, nonobstructive bowel containing ventral hernia and left colostomy. 8. Known pulmonary aspergillosis. 9. Hysterectomy and cholecystectomy. 10. Other findings are stable. All CT scans at this facility use dose modulation, iterative reconstruction, and/or weight-based dosing when appropriate to reduce radiation dose to as low as reasonably achievable.
== END 2017-05-06 23:00 | disposition home or self-care (01) ==
LOC: CT SRH 08:27
PROC: 02HV33Z Insertion of Infusion Device into Superior Vena Cava, Percutaneous Approach (ICD-10-PCS; principal; 2017-05-06)
PROC: B548ZZA Ultrasonography of Superior Vena Cava, Guidance (ICD-10-PCS; principal; 2017-05-06)
DX: C34.91 Malignant neoplasm of unspecified part of right bronchus or lung (principal); D72.829 Elevated white blood cell count, unspecified